=== PATIENT | male | born 1955 | race Caucasian/White ===

== ENCOUNTER 2016-12-26 18:01 | Inpatient (IN) | payer BC, OTHER ==
[~2016-12-26] VITALS: Ht 175.3 cm; Wt 113.0 kg
[~2016-12-26 18:01] MED LIST: CIPR100T4 PO; MORP1INJ45 PO; PERC7.5T13 PO
[2016-12-26 18:04] VITALS: BP 215/102; PULSE 92; RESP 17; TEMP 98.4; O2SAT 95
[2016-12-26 21:52] VITALS: BP 190/91; PULSE 71; RESP 18; O2SAT 100
[2016-12-26] MEDS ORDERED: SODIUM CHLOR 0.9% 1000 ML INJ 1,000 ML IV SCH (22:44)
[2016-12-26] MEDS ORDERED: MORPHINE SULFATE 4 MG/ML INJ IV PUSH ONE (22:45)
[2016-12-26] MEDS ORDERED: SODIUM CHLORIDE 0.9% FLUSH 5 ML FLUSH IVF PRN (22:45)
[2016-12-26] MEDS ORDERED: ONDANSETRON HCL 4 MG/2 ML VIAL IVP ONE (22:45)
[2016-12-26 23:05] LABS: AUTOMATED NEUTROPHIL # 9.3 TH/MM3 (1.8-7.7); BASOPHIL # 0.1 TH/MM3 (0-0.2); BASOPHIL % 0.4 % (0.0-2.0); EOSINOPHIL % 0.2 % (0.0-4.0); HEMATOCRIT 42.2 % (39.0-51.0); HEMO FLAGS DIFF FINAL; LYMPH % 14.8 % (9.0-44.0); LYMPHOCYTE # 1.8 TH/MM3 (1.0-4.8); MEAN CELL VOLUME 81.3 FL (80.0-100.0); MEAN CORPUSCULAR HGB CONC 34.5 % (32.0-36.0); MONO % 6.8 % (0.0-8.0); NEUT % 77.8 % (16.0-70.0); PLATELET COUNT 212 TH/MM3 (150-450); RED BLOOD COUNT 5.19 MIL/MM3 (4.50-5.90); RED CELL DISTRIBUTION WIDTH 15.2 % (11.6-17.2); WHITE BLOOD COUNT 11.9 TH/MM3 (4.0-11.0)
[2016-12-26 23:07] VITALS: O2SAT 99
[2016-12-26 23:15] LABS: APTT (PATIENT) 28.5 SEC (24.3-30.1); PROTHROMBIN TIME - PATIENT 11.4 SEC (9.8-11.6)
--- NOTE | 2016-12-26 23:22 | PD ---
HPI Chief Complaint: Lump, Cyst, Hernia Time Seen by Provider: 22:42 Travel History International Travel<30 days: No Contact w/Intl Traveler<30days: No Traveled to known affect area: No History of Present Illness HPI 61-year-old male with reportedly 5 surgeries for abdominal wall hematoma by Dr. Preea, last surgery was in 2011, here for evaluation of abdominal pain, nausea , and vomiting. The patient reports that after eating a sandwich 2 days ago he has been vomiting and unable to keep anything down. He has had mid and left mid abdominal pain which he describes as cramping, moderate, constant, worse with movement and palpation. He reports a small bowel movement yesterday. PFSH Past Medical History Blood Disorders: Yes (hx of blood clot left leg) Anxiety: Yes (just after surgery) Cancer: No Cardiovascular Problems: No Diabetes: No Deep Vein Thrombosis: Yes Endocrine: No Genitourinary: No Hepatitis: No Hiatal Hernia: No Immune Disorder: No Kidney Stones: Yes Medical other: Yes Musculoskeletal: No Neurologic: No Psychiatric: Yes Reproductive: No Respiratory: Yes Immunizations Current: Yes Thyroid Disease: No Tetanus Vaccination: Unknown Influenza Vaccination: Yes PNEUMOCCOCAL Vaccine (Year): 2 Past Surgical History Abdominal Surgery: Yes (7 HERNIA REPAIRS SINCE 2006) Cardiac Surgery: No Ear Surgery: No Endocrine Surgery: No Eye Surgery: No Genitourinary Surgery: Yes (LITHOTRIPSY) Gynecologic Surgery: No Oral Surgery: No Pacemaker: No Thoracic Surgery: No Other Surgery: Yes (abdominal x 3 hernia and intestinal) Social History Alcohol Use: Yes (quit 20 years ago) Tobacco Use: No Substance Use: No Allergies-Medications (Allergen,Severity, Reaction): Coded Allergies: No Known Allergies (Verified , 12/26/16) Reported Meds & Prescriptions Reported Meds & Active Scripts Active No Active Prescriptions or Reported Medications Review of Systems Except as stated in HPI: all other systems reviewed are Neg Physical Exam Narrative GENERAL: Well-developed, well-nourished, comfortable, no acute distress SKIN: Warm and dry. Several abdominal wall surgical scars are well-healed. HEAD: Atraumatic. Normocephalic. EYES: Pupils equal and round. No scleral icterus. No injection or drainage. ENT: Mucous membranes pink and moist. NECK: Trachea midline. No JVD. CARDIOVASCULAR: Regular rate and rhythm. RESPIRATORY: No accessory muscle use. Clear to auscultation. Breath sounds equal bilaterally. GASTROINTESTINAL: Abdomen soft, nondistended. Mild diffuse tenderness without peritoneal signs. No hernias. Normal bowel sounds. MUSCULOSKELETAL: No obvious deformities. No clubbing. No cyanosis. No edema. NEUROLOGICAL: Awake and alert. No obvious cranial nerve deficits. Motor grossly within normal limits. Normal speech. PSYCHIATRIC: Appropriate mood and affect; insight and judgment normal. Data Data Last Documented VS Vital Signs Date Time Temp Pulse Resp B/P Pulse Ox O2 Delivery O2 Flow Rate FiO2 12/27/16 01:09 20 12/26/16 23:56 88 154/92 99 Room Air 12/26/16 18:04 98.4 Orders Complete Blood Count With Diff (12/26/16 22:44) Comprehensive Metabolic Panel (12/26/16 22:44) Lipase (12/26/16 22:44) Lactic Acid (12/26/16 22:44) Prothrombin Time / Inr (Pt) (12/26/16 22:44) Act Partial Throm Time (Ptt) (12/26/16 22:44) Urinalysis - C+S If Indicated (12/26/16 22:44) Iv Access Insert/Monitor (12/26/16 22:44) Ecg Monitoring (12/26/16 22:44) Oximetry (12/26/16 22:44) Morphine Inj (Morphine Inj) (12/26/16 22:45) Ondansetron Inj (Zofran Inj) (12/26/16 22:45) Sodium Chlor 0.9% 1000 Ml Inj (Ns 1000 M (12/26/16 22:44) Sodium Chloride 0.9% Flush (Ns Flush) (12/26/16 22:45) Abdomen, Flat & Upright (12/26/16 ) Ct Abd/Pel W Iv Contrast(Rout) (12/27/16 ) Iohexol 350 Inj (Omnipaque 350 Inj) (12/27/16 00:31) Urine Culture (12/27/16 00:10) Ketorolac Inj (Toradol Inj) (12/27/16 01:15) Labs Laboratory Tests Test 12/26/16 12/26/16 12/27/16 22:55 23:05 00:10 Prothrombin Time 11.4 SEC Prothromb Time International 1.0 RATIO Ratio Activated Partial 28.5 SEC Thromboplast Time Sodium Level 139 MEQ/L Potassium Level 4.0 MEQ/L Chloride Level 105 MEQ/L Carbon Dioxide Level 24.3 MEQ/L Anion Gap 10 MEQ/L Blood Urea Nitrogen 12 MG/DL Creatinine 1.53 MG/DL Estimat Glomerular Filtration 47 ML/MIN Rate Random Glucose 91 MG/DL Calcium Level 9.0 MG/DL Total Bilirubin 0.6 MG/DL Aspartate Amino Transf 20 U/L (AST/SGOT) Alanine Aminotransferase 34 U/L (ALT/SGPT) Alkaline Phosphatase 97 U/L Total Protein 7.7 GM/DL Albumin 4.0 GM/DL Lipase 234 U/L White Blood Count 11.9 TH/MM3 Red Blood Count 5.19 MIL/MM3 Hemoglobin 14.6 GM/DL Hematocrit 42.2 % Mean Corpuscular Volume 81.3 FL Mean Corpuscular Hemoglobin 28.0 PG Mean Corpuscular Hemoglobin 34.5 % Concent Red Cell Distribution Width 15.2 % Platelet Count 212 TH/MM3 Mean Platelet Volume 8.0 FL Neutrophils (%) (Auto) 77.8 % Lymphocytes (%) (Auto) 14.8 % Monocytes (%) (Auto) 6.8 % Eosinophils (%) (Auto) 0.2 % Basophils (%) (Auto) 0.4 % Neutrophils # (Auto) 9.3 TH/MM3 Lymphocytes # (Auto) 1.8 TH/MM3 Monocytes # (Auto) 0.8 TH/MM3 Eosinophils # (Auto) 0.0 TH/MM3 Basophils # (Auto) 0.1 TH/MM3 CBC Comment DIFF FINAL Differential Comment Lactic Acid Level 0.9 mmol/L Urine Color YELLOW Urine Turbidity CLEAR Urine pH 5.5 Urine Specific [place] 1.019 Urine Protein TRACE mg/dL Urine Glucose (UA) NEG mg/dL Urine Ketones 10 mg/dL Urine Occult Blood MOD Urine Nitrite NEG Urine Bilirubin NEG Urine Urobilinogen LESS THAN 2.0 MG/DL Urine Leukocyte Esterase TRACE Urine RBC 15 /hpf Urine WBC 11 /hpf Urine Calcium Oxalate Crystals RARE /hpf Urine Mucus FEW /lpf Microscopic Urinalysis Comment CULTURE INDICATED MDM Medical Decision Making Medical Screen Exam Complete: Yes Emergency Medical Condition: Yes Differential Diagnosis Bowel obstruction, intra-abdominal infection, diverticulitis, colitis, seroma, infected mesh, nephrolithiasis Narrative Course Vital signs show heart rate 80, blood pressure 154/92, pulse ox 99% on room air , oral temp of 98.4F. CBC shows WBC 11.9, hemoglobin 14.6, hematocrit 42.2, platelets 212, neutrophils 77.8%. CMP is remarkable for creatinine 1.53, GFR 47, otherwise unremarkable. Lipase is 234. Lactic acid is 0.9. UA: 10 ketones, moderate occult blood, trace leukocyte esterase, 15 RBCs, 11 wbc's, rare calcium oxalate crystals, few urine mucus. Abdominal x-ray: Positive bowel gas in the abdomen. Bowel gas pattern otherwise within normal limits. CT abdomen pelvis: CONCLUSION: 1. 8mm proximal left ureteral calculus with moderate left hydronephrosis. 2. Colonic diverticulosis but no evidence of acute diverticulitis. The patient was made aware of all findings. He is still having pain despite receiving morphine and Toradol. He reports having a kidney stone on the left side that required stenting years ago. He states he is in too much pain to be discharged home and will like to be admitted for ureteral stenting. Case discussed with hospitalist Dr. Templeton. The patient will be admitted to his service for urology consultation. He will be started on Rocephin, Flomax, and IV fluids. Diagnosis Primary Impression: Ureterolithiasis Additional Impressions: Hydronephrosis Qualified Code: N13.2 - Hydronephrosis with urinary obstruction due to ureteral calculus Intractable pain Admitting Information Admitting Physician Requests: Admit Scripts No Active Prescriptions or Reported Meds Ashkan Justin MD Dec 26, 2016 23:22
[2016-12-26 23:23] LABS: ANION GAP 10 MEQ/L (5-15); AST (GOT) 20 U/L (15-37); BICARBONATE 24.3 MEQ/L (21.0-32.0); BLOOD UREA NITROGEN 12 MG/DL (7-18); CHLORIDE 105 MEQ/L (98-107); GLOMERULAR FILTRATION RATE 47 ML/MIN (>89); SODIUM (NA) 139 MEQ/L (136-145)
[2016-12-26 23:27] LABS: ALKALINE PHOSPHATASE 97 U/L (45-117); ALT (GPT) 34 U/L (12-78); TOTAL BILIRUBIN ADULT 0.6 MG/DL (0.2-1.0)
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
[2016-12-26 23:56] VITALS: BP 154/92; PULSE 88; RESP 18; O2SAT 99
[2016-12-27] MEDS ORDERED: IOHEXOL 350 MG/ML 10 ML VIAL (for RAD DIAG) IV ONE (00:31)
[2016-12-27 00:34] LABS: BLOOD, URINE MOD (NEG); CALCIUM OXALATE CRYSTALS,URINE RARE /hpf; COMMENT (UR) CULTURE INDICATED; CULTURE IF INDICATED CULTURE INDICATED; GLUCOSE,URINE NEG (NEG); KETONE, URINE 10 mg/dL (NEG); MUCUS URINE FEW /lpf (OCC); NITRITE,URINE NEG (NEG); PH, URINE 5.5 (5.0-8.5); URINE COLOR YELLOW (YELLW/STRAW)
--- NOTE | 2016-12-27 01:10 | RADRPT ---
EXAM DATE/TIME: 12/27/2016 00:13 [facility] COMPARISON: No previous studies available for comparison. INDICATIONS : Pain at site of umbilical hernia. History of multiple umbilical hernia surgeries. IV CONTRAST: 100 cc Omnipaque 350 (iohexol) IV ORAL CONTRAST: No oral contrast ingested. RADIATION DOSE: 17.03 CTDIvol (mGy) MEDICAL HISTORY : Deep venous thrombosis. Renal calculi. SURGICAL HISTORY : Umbilical hernia repair. ENCOUNTER: Initial ACUITY: 2 days PAIN SCALE: 10/10 LOCATION: Bilateral lower quadrant TECHNIQUE: Volumetric scanning of the abdomen and pelvis was performed. Using automated exposure control and ad justment of the mA and/or kV according to patient size, radiation dose was kept as low as reasonably achievable to obtain optimal diagnostic quality images. FINDINGS: LOWER LUNGS: The visualized lower lungs are clear. LIVER: Several scattered subcentimeter hypodensities statistically most likely to represent cysts. Otherwise within normal limits. Gallbladder within normal limits. SPLEEN: Normal size without lesion. PANCREAS: Within normal limits. KIDNEYS: 8 mm calculus in the proximal left ureter just below the ureteropelvic junction. Moderate severity le ft hydronephrosis. Punctate calculus in the posterior midpole of the left kidney. Slight delay in pha se of enhancement of the left kidney relative to the right. Right kidney is within normal limits. ADRENAL GLANDS: Within normal limits. VASCULAR: There is no aortic aneurysm. BOWEL/MESENTERY: Scattered colonic diverticula. No evidence of acute diverticulitis. Postsurgical findings of the prox imal colon. No evidence of bowel dilatation. No free air or free fluid. ABDOMINAL WALL: Evidence of prior hernia repair surgery anteriorly. RETROPERITONEUM: There is no lymphadenopathy. BLADDER: No wall thickening or mass. REPRODUCTIVE: Enlarged prostate measuring 6.5 cm INGUINAL: There is no lymphadenopathy or hernia. MUSCULOSKELETAL: Osteoarthritic findings in the hips and severe degenerative findings of lower lumbar spine facet join ts. CONCLUSION: 1. 8mm proximal left ureteral calculus with moderate left hydronephrosis. 2. Colonic diverticulosis but no evidence of acute diverticulitis. Maximilian Aragon MD on December 27, 2016 at 1:02 Board Certified Radiologist. This report was verified electronically.
[2016-12-27] MEDS ORDERED: KETOROLAC TROMETHAMINE 30 MG/ML (IVP) VIAL IV PUSH ONE (01:15)
[2016-12-27] MEDS ORDERED: SODIUM CHLOR 0.9% 1000 ML INJ 1,000 ML IV SCH (01:21)
[2016-12-27 01:27] VITALS: BP 152/79; PULSE 88; RESP 18
[2016-12-27] MEDS ORDERED: TAMSULOSIN HCL 0.4 MG CAP PO ONE (01:30)
[2016-12-27] MEDS ORDERED: ACETAMINOPHEN 325 MG TAB PO PRN (01:30)
[2016-12-27] MEDS ORDERED: MAGNESIUM HYDROXIDE SUSP 30 ML CUP PO PRN (01:30)
[2016-12-27] MEDS ORDERED: NALOXONE HCL 0.4 MG/ML AMP IV PRN (01:30)
[2016-12-27] MEDS ORDERED: cefTRIAXone INJ 1,000 MG in SODIUM CHLORIDE 0.9% INJ 100 ML IV ONE (01:30)
[2016-12-27] MEDS ORDERED: ONDANSETRON HCL 4 MG/2 ML VIAL IVP PRN (01:30)
[2016-12-27] MEDS: MORPHINE SULFATE 4 MG/ML INJ IV PRN ×2 (03:39→06:51)
[2016-12-27 03:42] VITALS: BP 154/83; PULSE 68; RESP 16; TEMP 98.4; O2SAT 95
[2016-12-27] MEDS: SODIUM CHLOR 0.9% 1000 ML INJ 1,000 ML IV SCH ×3 (03:43→23:49)
[2016-12-27 08:00] VITALS: BP 163/98; PULSE 70; RESP 18; TEMP 97.8; O2SAT 96
--- NOTE | 2016-12-27 08:27 | HHI.HP ---
[facility] No Primary Care Physician Admission Diagnosis left ureterolithiasis, hydronephrosis, intractable flank pain Diagnoses: Chief Complaint: left flank pain Travel History International Travel<30 Days: No Contact w/Intl Traveler <30 Da: No Traveled to Known Affected Are: No History of Present Illness Patient is a very pleasant 61 years old male who 3 days prior to admission started having abdominal pain which he initially thought was from his umbilical/ incisonal hernia from previous multiple abdominal surgeries. pain is described like a "gene horse" but persistent - last evening was so severe that patient doubled over and came to the ER for further evaluation. Patient denies any fever or dysuria or uregency. On further history, about 4 weeks ago had painless gross hematuria x 3 days. patient drank cranberry juice and pain spontaenously went away after 3 days. He does not recall is he passed a stone spontaneously. Denies any fever, dysuria, urgency He had history of ureteral stones in 2006- was admitted at [facility] seen by Dr. Mauricio Martinez where a stent was placed and he believed then that he did passed out stones and stent was removed 2 weeks after. He does not recall if he had stone analysis done. 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 No melena or hematochezia feels like he is going to have a BM now. Review of Systems Constitutional: DENIES: Diaphoretic episodes, Fatigue, Fever, Weight gain, Weight loss, Chills, Dizziness, Change in appetite, Night Sweats Endocrine: DENIES: Heat/cold intolerance, Polydipsia, Polyuria, Polyphagia Eyes: DENIES: Blurred vision, Diplopia, Eye inflammation, Eye pain, Vision loss , Photosensitivity, Double Vision Ears, nose, mouth, throat: DENIES: Tinnitus, Hearing loss, Vertigo, Nasal discharge, Oral lesions, Throat pain, Hoarseness, Ear Pain, Running Nose, Epistaxis, Sinus Pain, Toothache, Odynophagia Respiratory: DENIES: Apneas, Cough, Snoring, Wheezing, Hemoptysis, Sputum production, Shortness of breath Cardiovascular: DENIES: Chest pain, Palpitations, Syncope, Dyspnea on Exertion , PND, Lower Extremity Edema, Orthopnea, Claudication Gastrointestinal: COMPLAINS OF: Abdominal pain Genitourinary: COMPLAINS OF: Hematuria, DENIES: Sexual dysfunction, Urinary frequency, Urinary incontinence, Urgency, Dysuria, Nocturia, Penile Discharge, Testicular Pain, Testicular Swelling Musculoskeletal: DENIES: Joint pain, Muscle aches, Stiffness, Joint Swelling, Back pain, Neck pain Integumentary: DENIES: Abnormal pigmentation, Nail changes, Pruritus, Rash Hematologic/lymphatic: DENIES: Bruising, Lymphadenopathy Immunologic/allergic: DENIES: Eczema, Urticaria Neurologic: DENIES: Abnormal gait, Headache, Localized weakness, Paresthesias, Seizures, Speech Problems, Tremor, Poor Balance Psychiatric: DENIES: Anxiety, Confusion, Mood changes, Depression, Hallucinations, Agitation, Suicidal Ideation, Homicidal Ideation, Delusions Past Family Social History Past Medical History History of Ureteral stoness/p stent 2006 History of chronic pain due to chronic abdominal pain from umbilical hernia from previous abdominal surgeries- off pain meds since 2013 Past Surgical History multiple abdominal surgeries for umbilical/incisional hernia complicated by infection - mesh in place. last surgery 2011 ureteral stent 2006 EGD - 2011- for food impaction Reported Medications none Allergies: Coded Allergies: No Known Allergies (Verified , 12/26/16) Family History none contributory Social History non smoker occasional alcohol use- none for 15 years no history of recreational drug use Physical Exam Vital Signs Vital Signs Date Time Temp Pulse Resp B/P Pulse Ox O2 Delivery O2 Flow Rate FiO2 12/27/16 03:42 98.4 68 16 154/83 95 12/27/16 01:27 88 18 152/79 Nasal Cannula 2 12/27/16 01:09 20 12/26/16 23:56 88 18 154/92 99 Room Air 12/26/16 23:07 99 Room Air 12/26/16 21:52 71 18 190/91 100 12/26/16 18:04 98.4 92 17 215/102 95 Physical Exam GENERAL: This is a well-nourished, well-developed patient, in no apparent distress. SKIN: No rashes, ecchymoses or lesions. Cool and dry. HEAD: Atraumatic. Normocephalic. No temporal or scalp tenderness. EYES: Pupils equal round and reactive. Extraocular motions intact. No scleral icterus. No injection or drainage. ENT: Nose without bleeding, Throat without erythema, tonsillar hypertrophy or exudate. Uvula midline. Airway patent. NECK: Trachea midline. No JVD or lymphadenopathy. Supple, nontender, no meningeal signs. CARDIOVASCULAR: Regular rate and rhythm without murmurs, gallops, or rubs. RESPIRATORY: Clear to auscultation. Breath sounds equal bilaterally. No wheezes , rales, or rhonchi. GASTROINTESTINAL: Abdomen soft, non-tender, + umbilical/incisional hernia, good bowel sounds, no inguinal or scrotal hernia, mild left CVA tenderness. MUSCULOSKELETAL: Extremities without clubbing, cyanosis, or edema. No joint tenderness, effusion, or edema noted. No calf tenderness. Negative Homans sign bilaterally. NEUROLOGICAL: Awake and alert. Cranial nerves II through XII intact. Motor and sensory grossly within normal limits. Five out of 5 muscle strength in all muscle groups. Normal speech. Laboratory Laboratory Tests Test 12/26/16 12/26/16 12/27/16 22:55 23:05 00:10 Prothrombin Time 11.4 Prothromb Time International 1.0 Ratio Activated Partial 28.5 Thromboplast Time Sodium Level 139 Potassium Level 4.0 Chloride Level 105 Carbon Dioxide Level 24.3 Anion Gap 10 Blood Urea Nitrogen 12 Creatinine 1.53 Estimat Glomerular Filtration 47 Rate Random Glucose 91 Calcium Level 9.0 Total Bilirubin 0.6 Aspartate Amino Transf 20 (AST/SGOT) Alanine Aminotransferase 34 (ALT/SGPT) Alkaline Phosphatase 97 Total Protein 7.7 Albumin 4.0 Lipase 234 White Blood Count 11.9 Red Blood Count 5.19 Hemoglobin 14.6 Hematocrit 42.2 Mean Corpuscular Volume 81.3 Mean Corpuscular Hemoglobin 28.0 Mean Corpuscular Hemoglobin 34.5 Concent Red Cell Distribution Width 15.2 Platelet Count 212 Mean Platelet Volume 8.0 Neutrophils (%) (Auto) 77.8 Lymphocytes (%) (Auto) 14.8 Monocytes (%) (Auto) 6.8 Eosinophils (%) (Auto) 0.2 Basophils (%) (Auto) 0.4 Neutrophils # (Auto) 9.3 Lymphocytes # (Auto) 1.8 Monocytes # (Auto) 0.8 Eosinophils # (Auto) 0.0 Basophils # (Auto) 0.1 CBC Comment DIFF FINAL Differential Comment Lactic Acid Level 0.9 Urine Color YELLOW Urine Turbidity CLEAR Urine pH 5.5 Urine Specific [place] 1.019 Urine Protein TRACE Urine Glucose (UA) NEG Urine Ketones 10 Urine Occult Blood MOD Urine Nitrite NEG Urine Bilirubin NEG Urine Urobilinogen LESS THAN 2.0 Urine Leukocyte Esterase TRACE Urine RBC 15 Urine WBC 11 Urine Calcium Oxalate Crystals RARE Urine Mucus FEW Microscopic Urinalysis Comment CULTURE INDICATED Date/Time Procedure Status Source Growth 12/27/16 00:10 Urine Culture Received Urine Clean Catch Pending Result Diagram: 12/26/16225412/26/16225[address] of abdomina- left hydronephrosis with left ureteral stones Assessment and Plan Assessment and Plan 61 years old male Left ureteral calculus with hydronephrosis with previous history of stones 2006 S/p stent episode of gross hematuria x 3 days - 4 weeks ago Urology consulted Toradol IV prn for pain. As much as possible he vountarily would like to avoid narcotics for pain control with his history of narcotic dependence in the past strain urine- send urine for stone analysis on Ceftriaxone. Ff c and s. Umbilical/Incisional hernia- no signs of obstruction PPI for GI prophylaxis Encourage ambulation Physician Certification 2 Midnight Certification Type: Admission for Inpatient Services Order for Inpatient Services The services are ordered in accordance with Medicare regulations or non- Medicare payer requirements, as applicable. In the case of services not specified as inpatient-only, they are appropriately provided as inpatient services in accordance with the 2-midnight benchmark. Estimated LOS (days): 3 days is the estimated time the patient will need to remain in the hospital, assuming treatment plan goals are met and no additional complications. Post-Hospital Plan: Home Rocío Fowler MD Dec 27, 2016 08:27
[2016-12-27 08:44] LABS: BICARBONATE 23.4 MEQ/L (21.0-32.0); POTASSIUM 4.1 MEQ/L (3.5-5.1)
[2016-12-27 08:45] LABS: AUTOMATED NEUTROPHIL # 5.7 TH/MM3 (1.8-7.7); BASOPHIL # 0.1 TH/MM3 (0-0.2); BASOPHIL % 0.8 % (0.0-2.0); EOSINOPHIL # 0.2 TH/MM3 (0-0.4); HEMATOCRIT 39.4 % (39.0-51.0); HEMO FLAGS DIFF FINAL; LYMPH % 25.9 % (9.0-44.0); LYMPHOCYTE # 2.5 TH/MM3 (1.0-4.8); MEAN CELL VOLUME 81.9 FL (80.0-100.0); MEAN CORPUSCULAR HEMOGLOBIN 27.1 PG (27.0-34.0); MEAN CORPUSCULAR HGB CONC 33.2 % (32.0-36.0); MONO % 11.1 % (0.0-8.0); NEUT % 60.2 % (16.0-70.0); PLATELET COUNT 183 TH/MM3 (150-450); RED BLOOD COUNT 4.82 MIL/MM3 (4.50-5.90); RED CELL DISTRIBUTION WIDTH 15.4 % (11.6-17.2); WHITE BLOOD COUNT 9.5 TH/MM3 (4.0-11.0)
[2016-12-27] MEDS: KETOROLAC TROMETHAMINE 30 MG/ML (IVP) VIAL IV PUSH PRN ×3 (10:12→22:30)
[2016-12-27] MEDS: PANTOPRAZOLE SODIUM 40 MG VIAL IV PUSH SCH (10:12)
[2016-12-27 12:00] VITALS: BP 152/86; PULSE 82; RESP 20; TEMP 97.4; O2SAT 97
[2016-12-27 16:00] VITALS: BP 139/77; PULSE 60; RESP 18; TEMP 97.6; O2SAT 97
--- NOTE | 2016-12-27 18:48 | PD.CONS ---
HPI Service Urology Consult Requested By Reason for Consult Nephrolithiasis Primary Care Physician No Primary Care Physician Diagnosis: History of Present Illness 61yo male with history of nephrolithiasis admitted for left flank pain seen in consultation for left nephrolithiasis and hydronephrosis. Patient has a signficant past medical history of kidney stones, requiring multiple procedures with Dr. Martinez to treat his stone burden. He had been doing well until about one week ago he began to experience severe left flank pain that radiated to the abdomen. The pain was intermittent and associated with Nausea, no fevers, no vomiting. He did report an episode of blood in the urine during the pain episode. Since admit he reports his pain has improved with medications. Review of Systems ROS Limitations: Clinical Condition Constitutional: DENIES: Fever Endocrine: DENIES: Polyuria Eyes: DENIES: Blurred vision Ears, nose, mouth, throat: DENIES: Hearing loss Respiratory: DENIES: Cough Cardiovascular: DENIES: Chest pain Gastrointestinal: COMPLAINS OF: Abdominal pain, Nausea, DENIES: Vomiting Genitourinary: COMPLAINS OF: Hematuria, DENIES: Dysuria Musculoskeletal: COMPLAINS OF: Back pain Integumentary: DENIES: Rash Hematologic/lymphatic: DENIES: Bruising Immunologic/allergic: DENIES: Eczema Neurologic: DENIES: Abnormal gait Psychiatric: DENIES: Anxiety Except as stated in HPI: all other systems reviewed are Neg Past Family Social History Past Medical History History of Ureteral stoness/p stent 2006 History of chronic pain due to chronic abdominal pain from umbilical hernia from previous abdominal surgeries- off pain meds since 2013 Past Surgical History multiple abdominal surgeries for umbilical/incisional hernia complicated by infection - mesh in place. last surgery 2011 ureteral stent 2006 EGD - 2011- for food impaction Reported Medications Reported Meds & Active Scripts Active No Active Prescriptions or Reported Medications Allergies: Coded Allergies: No Known Allergies (Verified , 12/26/16) Active Ordered Medications Current Medications Medications (Trade) Dose Ordered Sig/Rosita Route Start Time Stop Time Status Last Admin IV Flush 2 ml 2 ml UNSCH PRN IVF 12/26/16 22:45 12/26/16 23:16 (NS 1000 ml Inj) 1,000 ml @ 100 mls/hr Q10H IV 12/27/16 01:19 12/27/16 14:45 (Zofran Inj) 4 mg Q6H PRN IVP 12/27/16 01:30 (Milk Of Jayy Liq) 30 ml Q12H PRN PO 12/27/16 01:30 (Tylenol) 650 mg Q6H PRN PO 12/27/16 01:30 (Morphine Inj) 2 mg Q3H PRN IV 12/27/16 01:30 12/27/16 06:51 (Morphine Inj) 4 mg Q3H PRN IV 12/27/16 01:30 Naloxone HCl 0.4 mg 0.4 mg UNSCH PRN IV 12/27/16 01:30 (Rocephin Inj/NS Inj) 100 ml @ 200 mls/hr Q24H IV 12/28/16 02:00 (Flu (Quadrivalent) Vaccine Inj) 0.5 ml ONCE ONCE IM 12/28/16 09:00 12/28/16 09:01 (Protonix Inj) 40 mg Q24H IV PUSH 12/27/16 09:00 12/27/16 10:12 (Toradol Inj) 15 mg Q6H PRN IV PUSH 12/27/16 08:30 01/01/17 08:29 12/27/16 16:17 Family History Family history reviewed and noncontributory to present illness Social History non smoker occasional alcohol use- none for 15 years no history of recreational drug use Physical Exam Vital Signs Vital Signs Date Time Temp Pulse Resp B/P Pulse Ox O2 Delivery O2 Flow Rate FiO2 12/27/16 16:00 97.6 60 18 139/77 97 12/27/16 12:00 97.4 82 20 152/86 97 12/27/16 08:00 97.8 70 18 163/98 96 12/27/16 03:42 98.4 68 16 154/83 95 12/27/16 01:27 88 18 152/79 Nasal Cannula 2 12/27/16 01:09 20 12/26/16 23:56 88 18 154/92 99 Room Air 12/26/16 23:07 99 Room Air 12/26/16 21:52 71 18 190/91 100 Physical Exam GENERAL: This is a well-nourished, well-developed patient, in no apparent distress. SKIN: No rashes, ecchymoses or lesions. Cool and dry. HEAD: Atraumatic. Normocephalic. EYES: Extraocular motions intact. No scleral icterus. No injection or drainage. ENT: Nose without bleeding, purulent drainage. Airway patent. NECK: Trachea midline. CARDIOVASCULAR: Normal pulses, extermities well perfused RESPIRATORY: Nonlabored respirations, equal chest rise GASTROINTESTINAL: Abdomen nondistended, large midline incisional hernia noted, nontender MUSCULOSKELETAL: Extremities without clubbing, cyanosis, or edema. NEUROLOGICAL: Awake and alert. Motor and sensory grossly within normal limits. Normal speech. Laboratory Laboratory Tests Test 12/26/16 12/26/16 12/27/16 12/27/16 22:55 23:05 00:10 06:30 Prothrombin Time 11.4 Prothromb Time International 1.0 Ratio Activated Partial 28.5 Thromboplast Time Sodium Level 139 Potassium Level 4.0 Chloride Level 105 Carbon Dioxide Level 24.3 Anion Gap 10 Blood Urea Nitrogen 12 Creatinine 1.53 Estimat Glomerular Filtration 47 Rate Random Glucose 91 Calcium Level 9.0 Total Bilirubin 0.6 Aspartate Amino Transf 20 (AST/SGOT) Alanine Aminotransferase 34 (ALT/SGPT) Alkaline Phosphatase 97 Total Protein 7.7 Albumin 4.0 Lipase 234 White Blood Count 11.9 9.5 Red Blood Count 5.19 4.82 Hemoglobin 14.6 13.1 Hematocrit 42.2 39.4 Mean Corpuscular Volume 81.3 81.9 Mean Corpuscular Hemoglobin 28.0 27.1 Mean Corpuscular Hemoglobin 34.5 33.2 Concent Red Cell Distribution Width 15.2 15.4 Platelet Count 212 183 Mean Platelet Volume 8.0 8.5 Neutrophils (%) (Auto) 77.8 60.2 Lymphocytes (%) (Auto) 14.8 25.9 Monocytes (%) (Auto) 6.8 11.1 Eosinophils (%) (Auto) 0.2 2.0 Basophils (%) (Auto) 0.4 0.8 Neutrophils # (Auto) 9.3 5.7 Lymphocytes # (Auto) 1.8 2.5 Monocytes # (Auto) 0.8 1.1 Eosinophils # (Auto) 0.0 0.2 Basophils # (Auto) 0.1 0.1 CBC Comment DIFF FINAL DIFF FINAL Differential Comment Lactic Acid Level 0.9 Urine Color YELLOW Urine Turbidity CLEAR Urine pH 5.5 Urine Specific [place] 1.019 Urine Protein TRACE Urine Glucose (UA) NEG Urine Ketones 10 Urine Occult Blood MOD Urine Nitrite NEG Urine Bilirubin NEG Urine Urobilinogen LESS THAN 2.0 Urine Leukocyte Esterase TRACE Urine RBC 15 Urine WBC 11 Urine Calcium Oxalate Crystals RARE Urine Mucus FEW Microscopic Urinalysis Comment CULTURE INDICATED Hematology Comments Test 12/27/16 08:00 Sodium Level 140 Potassium Level 4.1 Chloride Level 108 Carbon Dioxide Level 23.4 Anion Gap 9 Blood Urea Nitrogen 13 Creatinine 1.37 Estimat Glomerular Filtration 53 Rate Random Glucose 83 Uric Acid 6.5 Calcium Level 8.3 Date/Time Procedure Status Source Growth 12/27/16 00:10 Urine Culture Received Urine Clean Catch Pending Result Diagram: 12/27/16 0630 12/27/16 0800 Imaging Last 48 hours Impressions Abdomen/Pelvis CT 12/27/16 0000 Signed Impressions: Service Date/Time: Tuesday, December 27, 2016 00:13 - CONCLUSION: 1. 8mm proximal left ureteral calculus with moderate left hydronephrosis. 2. Colonic diverticulosis but no evidence of acute diverticulitis. Maximilian Aragon MD Abdomen X-Ray 12/26/16 0000 Signed Impressions: Service Date/Time: Monday, December 26, 2016 23:05 - CONCLUSION: Paucity of bowel gas in the abdomen. Bowel gas pattern otherwise within normal limits. Maximilian Aragon MD Assessment and Plan Problem List: (1) Ureterolithiasis ICD Code: N20.1 Status: Acute (2) Hydronephrosis ICD Code: N13.30 Status: Acute Assessment and Plan 61yo male with left nephrolithiasis -Reviewed CT scan findings with large left proximal ureteral stone noted with resultant hydronephrosis -Patient currently comfortable, however he has had multiple stones in the past and would like treatment at this time -Therefore, plan for left ureteral stent placement tomorrow with likely ESWL in the future as he has had this in the past with satisfactory results -NPO at midnight tonight -Patient understands the risks and benefits of the procedure Problem Qualifiers (1) Hydronephrosis: Qualified Code: N13.2 - Hydronephrosis with urinary obstruction due to ureteral calculus Tyson Villarreal MD Dec 27, 2016 18:48
[2016-12-27 20:14] VITALS: BP 135/71; PULSE 80; RESP 18; TEMP 97.8; O2SAT 96
[2016-12-28] VITALS: BP 116/72; PULSE 64; RESP 18; TEMP 98; O2SAT 96
[2016-12-28] MEDS: cefTRIAXone INJ 1,000 MG in SODIUM CHLORIDE 0.9% INJ 100 ML IV SCH (02:12)
[2016-12-28 04:05] VITALS: BP 125/73; PULSE 55; RESP 16; TEMP 97.2; O2SAT 96
[2016-12-28] MEDS: KETOROLAC TROMETHAMINE 30 MG/ML (IVP) VIAL IV PUSH PRN ×3 (04:19→17:23)
[2016-12-28] MEDS: SODIUM CHLOR 0.9% 1000 ML INJ 1,000 ML IV SCH (07:19)
[2016-12-28 07:50] VITALS: BP 150/87; PULSE 20; RESP 20; TEMP 98.2; O2SAT 99
[2016-12-28] MEDS: MORPHINE SULFATE 4 MG/ML INJ IV PRN ×4 (08:36→23:19)
[2016-12-28] MEDS: PANTOPRAZOLE SODIUM 40 MG VIAL IV PUSH SCH (08:42)
[2016-12-28] MEDS ORDERED: INFLUENZA VIRUS VACCINE (QUADRIVALENT) 0.5 ML SYR IM ONE (09:00)
--- NOTE | 2016-12-28 10:09 | HHI.PR ---
Subjective Remarks had a good night slight flank pain last evening no voiding complainst-urine grossly clear Objective Vitals Vital Signs Date Time Temp Pulse Resp B/P Pulse Ox O2 Delivery O2 Flow Rate FiO2 12/28/16 04:05 97.2 55 16 125/73 96 12/28/16 00:00 98.0 64 18 116/72 96 12/27/16 20:14 97.8 80 18 135/71 96 12/27/16 16:00 97.6 60 18 139/77 97 12/27/16 12:00 97.4 82 20 152/86 97 I/O 12/27/16 12/27/16 12/27/16 12/28/16 12/28/16 12/28/16 07:00 15:00 23:00 07:00 15:00 23:00 Intake Total 997 ml 450 ml 0 ml Output Total 200 ml 200 ml 300 ml Balance 797 ml 250 ml -300 ml Intake Oral 0 ml 450 ml 0 ml IV Total 997 ml Output Urine Total 200 ml 200 ml 300 ml # Bowel Movements 0 0 Result Diagram: 12/27/16 0630 12/27/16 0800 Imaging Last Impressions Abdomen/Pelvis CT 12/27/16 0000 Signed Impressions: Service Date/Time: Tuesday, December 27, 2016 00:13 - CONCLUSION: 1. 8mm proximal left ureteral calculus with moderate left hydronephrosis. 2. Colonic diverticulosis but no evidence of acute diverticulitis. Maximilian Aragon MD Abdomen X-Ray 12/26/16 0000 Signed Impressions: Service Date/Time: Monday, December 26, 2016 23:05 - CONCLUSION: Paucity of bowel gas in the abdomen. Bowel gas pattern otherwise within normal limits. Maximilian Aragon MD Objective Remarks awake and alert, NAD lungs clear regular rhythm abdomen0 flabby soft, good bowel sounds, mild left CVA tenderness extremities no edema neuro exam- unremarkable A/P Assessment and Plan 61 years old male Left ureteral calculus with hydronephrosis with previous history of stones 2007 S/p stent Urology ff- plan for intervention today on Ceftriaxone. Ff c and s. Umbilical/Incisional hernia- no signs of obstruction PPI for GI prophylaxis Encourage ambulation DC planning Rocío Fowler MD Dec 28, 2016 10:09
[2016-12-28 11:50] VITALS: BP 140/80; PULSE 63; RESP 20; TEMP 98.2; O2SAT 96
[2016-12-28 15:50] VITALS: BP 144/78; PULSE 59; RESP 20; TEMP 97.6; O2SAT 96
--- NOTE | 2016-12-28 19:22 | HHI.PR ---
Subjective Remarks Patient seen and examined. Unable to go to OR today for stent placement due to OR humidity malfunction Objective Vital Signs Vital Signs Date Time Temp Pulse Resp B/P Pulse Ox O2 Delivery O2 Flow Rate FiO2 12/28/16 18:23 18 12/28/16 15:50 97.6 59 20 144/78 96 12/28/16 11:50 98.2 63 20 140/80 96 12/28/16 08:41 18 12/28/16 07:50 98.2 20 20 150/87 99 12/28/16 04:05 97.2 55 16 125/73 96 12/28/16 00:00 98.0 64 18 116/72 96 12/27/16 20:14 97.8 80 18 135/71 96 I/O 12/27/16 12/27/16 12/27/16 12/28/16 12/28/16 12/28/16 07:00 15:00 23:00 07:00 15:00 23:00 Intake Total 997 ml 450 ml 0 ml 2423 ml Output Total 200 ml 200 ml 300 ml Balance 797 ml 250 ml -300 ml 2423 ml Intake Oral 0 ml 450 ml 0 ml IV Total 997 ml 2423 ml Output Urine Total 200 ml 200 ml 300 ml # Bowel Movements 0 0 Result Diagram: 12/27/16 0630 12/27/16 0800 Imaging Last 48 hours Impressions Abdomen/Pelvis CT 12/27/16 0000 Signed Impressions: Service Date/Time: Tuesday, December 27, 2016 00:13 - CONCLUSION: 1. 8mm proximal left ureteral calculus with moderate left hydronephrosis. 2. Colonic diverticulosis but no evidence of acute diverticulitis. Maximilian Aragon MD Abdomen X-Ray 12/26/16 0000 Signed Impressions: Service Date/Time: Monday, December 26, 2016 23:05 - CONCLUSION: Paucity of bowel gas in the abdomen. Bowel gas pattern otherwise within normal limits. Maximilian Aargon MD Objective Remarks NAD, AAOx3 Resp NL Ab Soft, nontender Ambulatory Assessment and Plan Problem List: (1) Ureterolithiasis ICD Code: N20.1 Status: Acute (2) Hydronephrosis ICD Code: N13.30 Status: Acute Assessment and Plan 61yo male with left nephrolithiasis -Plan for OR tomorrow for left ureteral stent placement -NPO at midnight Problem Qualifiers (1) Hydronephrosis: Qualified Code: N13.2 - Hydronephrosis with urinary obstruction due to ureteral calculus Tyson Villarreal MD Dec 28, 2016 19:22
[2016-12-28] MEDS ORDERED: MORPHINE SULFATE 4 MG/ML INJ IV PRN (19:30)
[2016-12-28 20:00] VITALS: BP 133/69; PULSE 66; RESP 16; TEMP 97.7; O2SAT 98
[2016-12-29] VITALS (7 sets, daily range): BP systolic 144–169; BP diastolic 86–91; PULSE 56–94; RESP 16–20; TEMP 95.8–98.1; O2SAT 94–99
[2016-12-29] MEDS: KETOROLAC TROMETHAMINE 30 MG/ML (IVP) VIAL IV PUSH PRN ×3 (00:21→20:17)
[2016-12-29] MEDS: SODIUM CHLOR 0.9% 1000 ML INJ 1,000 ML IV SCH ×4 (00:25→23:19)
[2016-12-29] MEDS: MORPHINE SULFATE 4 MG/ML INJ IV PRN ×3 (02:52→12:04)
[2016-12-29] MEDS: cefTRIAXone INJ 1,000 MG in SODIUM CHLORIDE 0.9% INJ 100 ML IV SCH (02:52)
--- NOTE | 2016-12-29 08:12 | HHI.PR ---
Subjective Remarks voiding spontaneously- no gross hematuria, no dysuria Objective Vitals Vital Signs Date Time Temp Pulse Resp B/P Pulse Ox O2 Delivery O2 Flow Rate FiO2 12/29/16 04:00 96.7 57 16 167/90 97 12/29/16 00:00 97.4 56 16 144/86 98 12/28/16 20:00 97.7 66 16 133/69 98 12/28/16 18:23 18 12/28/16 15:50 97.6 59 20 144/78 96 12/28/16 11:50 98.2 63 20 140/80 96 12/28/16 08:41 18 I/O 12/28/16 12/28/16 12/28/16 12/29/16 12/29/16 12/29/16 07:00 15:00 23:00 07:00 15:00 23:00 Intake Total 0 ml 0 ml 2783 ml 0 ml Output Total 300 ml Balance -300 ml 0 ml 2783 ml 0 ml Intake Oral 0 ml 0 ml 360 ml 0 ml IV Total 2423 ml Output Urine Total 300 ml # Voids 5 2 2 # Bowel Movements 0 1 0 0 Result Diagram: 12/27/16 0630 12/27/16 0800 Imaging Last Impressions Abdomen/Pelvis CT 12/27/16 0000 Signed Impressions: Service Date/Time: Tuesday, December 27, 2016 00:13 - CONCLUSION: 1. 8mm proximal left ureteral calculus with moderate left hydronephrosis. 2. Colonic diverticulosis but no evidence of acute diverticulitis. Maximilian Aragon MD Abdomen X-Ray 12/26/16 0000 Signed Impressions: Service Date/Time: Monday, December 26, 2016 23:05 - CONCLUSION: Paucity of bowel gas in the abdomen. Bowel gas pattern otherwise within normal limits. Maximilian Aragon MD Objective Remarks awake and alert, NAD lungs clear regular rhythm abdomen0 flabby soft, good bowel sounds, no CVA tenderness extremities no edema neuro exam- unremarkable A/P Assessment and Plan 61 years old male Left ureteral calculus with hydronephrosis with previous history of stones 2006 S/p stent Urology ff- plan for iOR today on Ceftriaxone Umbilical/Incisional hernia- no signs of obstruction PPI for GI prophylaxis Encourage ambulation Today possibly after procedure if cleared with Urology Rocío Fowler MD Dec 29, 2016 08:12 Rocío Fowler MD Dec 29, 2016 08:12
[2016-12-29] MEDS: PANTOPRAZOLE SODIUM 40 MG VIAL IV PUSH SCH (08:56)
[2016-12-29] MEDS ORDERED: LACTATED RINGER'S 1000 ML INJ 1,000 ML IV ONE (12:00)
[2016-12-29] MEDS ORDERED: PROPOFOL 200 MG/20 ML AMP IV ONE ×2 (12:00)
[2016-12-29] MEDS ORDERED: ONDANSETRON HCL 4 MG/2 ML VIAL IV PUSH ONE (12:00)
[2016-12-29] MEDS ORDERED: LORazepam 2 MG/ML VIAL IV PUSH ONE (12:00)
[2016-12-29] MEDS ORDERED: MIDAZOLAM HCL 2 MG/2 ML VIAL ONE (16:08)
[2016-12-29] MEDS ORDERED: fentaNYL CITRATE 250 MCG/5 ML AMP ONE ×2 (16:09→17:10)
[2016-12-29] MEDS ORDERED: ACETAMINOPHEN 1000 MG/100 ML VIAL IV ONE (16:09)
[2016-12-29] MEDS ORDERED: ceFAZolin INJ 1,000 MG VIAL IV ONE (16:30)
[2016-12-29] MEDS ORDERED: IOHEXOL 350 MG/ML 50 ML BTL (for RAD DIAG) OTHER ONE (16:36)
--- NOTE | 2016-12-29 17:01 | HHI.PR ---
Subjective Remarks Successful placement of left ureteral stent. Patient is clear for discharge from Urology standpoint Follow-p in clinic in 1-2 weeks to plan definitive stone surgery with ESWL vs Ureteroscopy Please call with questions Objective Vital Signs Vital Signs Date Time Temp Pulse Resp B/P Pulse Ox O2 Delivery O2 Flow Rate FiO2 12/29/16 15:00 98.1 61 20 169/91 99 12/29/16 12:39 60 158/88 98 12/29/16 11:50 97.0 60 20 163/90 97 12/29/16 07:50 95.8 58 20 149/86 99 12/29/16 04:00 96.7 57 16 167/90 97 12/29/16 00:00 97.4 56 16 144/86 98 12/28/16 20:00 97.7 66 16 133/69 98 12/28/16 18:23 18 I/O 12/28/16 12/28/16 12/28/16 12/29/16 12/29/16 12/29/16 07:00 15:00 23:00 07:00 15:00 23:00 Intake Total 0 ml 0 ml 2783 ml 0 ml 0 ml Output Total 300 ml Balance -300 ml 0 ml 2783 ml 0 ml 0 ml Intake Oral 0 ml 0 ml 360 ml 0 ml 0 ml IV Total 2423 ml Output Urine Total 300 ml # Voids 5 2 2 4 # Bowel Movements 0 1 0 0 1 Result Diagram: 12/27/16 0630 12/27/16 0800 Assessment and Plan Problem List: (1) Ureterolithiasis ICD Code: N20.1 Status: Acute (2) Hydronephrosis ICD Code: N13.30 Status: Acute Problem Qualifiers (1) Hydronephrosis: Qualified Code: N13.2 - Hydronephrosis with urinary obstruction due to ureteral calculus Tyson Villarreal MD Dec 29, 2016 17:00
[2016-12-30] VITALS: BP 148/74; PULSE 67; RESP 18; TEMP 96.9; O2SAT 97
[2016-12-30] MEDS: cefTRIAXone INJ 1,000 MG in SODIUM CHLORIDE 0.9% INJ 100 ML IV SCH (01:57)
[2016-12-30] MEDS: KETOROLAC TROMETHAMINE 30 MG/ML (IVP) VIAL IV PUSH PRN (02:02)
[2016-12-30 04:00] VITALS: BP 145/71; PULSE 65; RESP 18; TEMP 96.6; O2SAT 95
[2016-12-30 08:00] VITALS: BP 134/91; PULSE 66; RESP 16; TEMP 97.9; O2SAT 99
[2016-12-30] MEDS: PANTOPRAZOLE SODIUM 40 MG VIAL IV PUSH SCH (08:32)
[2016-12-30] MEDS: SODIUM CHLOR 0.9% 1000 ML INJ 1,000 ML IV SCH (09:19)
--- NOTE | 2016-12-30 09:31 | HHI.PR ---
Subjective Remarks states had some hematuria after procedure but this is clearing out. denies cp/sob denies fevers/chills urinating well stable vital signs afebrile Objective Vitals Vital Signs Date Time Temp Pulse Resp B/P Pulse Ox O2 Delivery O2 Flow Rate FiO2 12/30/16 04:00 96.6 65 18 145/71 95 12/30/16 03:52 20 12/30/16 00:00 96.9 67 18 148/74 97 12/29/16 21:10 97.6 94 16 156/90 94 12/29/16 17:45 62 16 170/97 100 Nasal Cannula 2 12/29/16 17:29 62 16 172/91 96 Nasal Cannula 3 12/29/16 17:15 Nasal Cannula 3 12/29/16 17:03 98.1 89 16 167/86 98 Nasal Cannula 3 12/29/16 15:00 98.1 61 20 169/91 99 12/29/16 12:39 60 158/88 98 12/29/16 11:50 97.0 60 20 163/90 97 I/O 12/29/16 12/29/16 12/29/16 12/30/16 12/30/16 12/30/16 07:00 15:00 23:00 07:00 15:00 23:00 Intake Total 0 ml 0 ml 400 ml 1145 ml Output Total 0 ml Balance 0 ml 0 ml 400 ml 1145 ml Intake Oral 0 ml 0 ml IV Total 200 ml 1145 ml Other 200 ml Output Urine Total 0 ml Estimated Blood Loss 0 ml # Voids 2 4 4 # Bowel Movements 0 1 1 Result Diagram: 12/27/16 0630 12/27/16 0800 Imaging Last Impressions Abdomen/Pelvis CT 12/27/16 0000 Signed Impressions: Service Date/Time: Tuesday, December 27, 2016 00:13 - CONCLUSION: 1. 8mm proximal left ureteral calculus with moderate left hydronephrosis. 2. Colonic diverticulosis but no evidence of acute diverticulitis. Maximilian Aragon MD Abdomen X-Ray 12/26/16 0000 Signed Impressions: Service Date/Time: Monday, December 26, 2016 23:05 - CONCLUSION: Paucity of bowel gas in the abdomen. Bowel gas pattern otherwise within normal limits. Maximilian Aragon MD Objective Remarks awake and alert, NAD lungs clear regular rhythm abdomen0 flabby soft, good bowel sounds, no CVA tenderness extremities no edema neuro exam- unremarkable Procedures sp retrograde Cystoscopy and left ureteral stent placement on 12/29/16 Medications and IVs Current Medications Medications (Trade) Dose Ordered Sig/Rosita Route Start Time Stop Time Status Last Admin IV Flush 2 ml 2 ml UNSCH PRN IVF 12/26/16 22:45 12/26/16 23:16 (NS 1000 ml Inj) 1,000 ml @ 100 mls/hr Q10H IV 12/27/16 01:19 12/29/16 23:19 (Zofran Inj) 4 mg Q6H PRN IVP 12/27/16 01:30 12/28/16 08:34 (Milk Of Magnesia Liq) 30 ml Q12H PRN PO 12/27/16 01:30 (Tylenol) 650 mg Q6H PRN PO 12/27/16 01:30 Naloxone HCl 0.4 mg 0.4 mg UNSCH PRN IV 12/27/16 01:30 (Rocephin Inj/NS Inj) 100 ml @ 200 mls/hr Q24H IV 12/28/16 02:00 12/30/16 01:57 (Protonix Inj) 40 mg Q24H IV PUSH 12/27/16 09:00 12/29/16 08:56 (Toradol Inj) 15 mg Q6H PRN IV PUSH 12/27/16 08:30 01/01/17 08:29 12/30/16 02:02 (Morphine Inj) 1 mg Q3H PRN IV 12/28/16 19:30 (Morphine Inj) 2 mg Q4HR PRN IV 12/28/16 20:00 12/29/16 12:04 A/P Problem List: (1) Intractable pain ICD Code: R52 Status: Resolved (2) Ureterolithiasis ICD Code: N20.1 Status: Resolved (3) Hydronephrosis ICD Code: N13.30 Status: Resolved Assessment and Plan 61 years old male Left ureteral calculus with hydronephrosis with previous history of stones 2007 S/p stent Patient is sp Left ureteral stent placement. Pain resolved. On Rocephin x 3 days. Does not need antibiotics upon DC. Umbilical/Incisional hernia- no signs of obstruction PPI for GI prophylaxis Encourage ambulation Problem Qualifiers (1) Hydronephrosis: Qualified Code: N13.2 - Hydronephrosis with urinary obstruction due to ureteral calculus Danial Barnett MD Dec 30, 2016 09:31
--- NOTE | 2016-12-30 11:18 | HHI.DCPOC ---
Discharge Care Plan Diagnosis: (1) Intractable pain (2) Ureterolithiasis (3) Hydronephrosis Goals to Promote Your Health * To prevent worsening of your condition and complications * To maintain your health at the optimal level Directions to Meet Your Goals Take your medications as prescribed Follow your dietary instruction Follow activity as directed Keep your appointments as scheduled Take your immunizations and boosters as scheduled If your symptoms worsen call your PCP, if no PCP go to Urgent Care Center or Emergency Room Smoking is Dangerous to Your Health. Avoid second hand smoke Call the 24-hour hour crisis hotline for domestic abuse at Danial Barnett MD Dec 30, 2016 11:18
[2016-12-30 11:35] LABS: BICARBONATE 25.3 MEQ/L (21.0-32.0); POTASSIUM 3.8 MEQ/L (3.5-5.1)
--- NOTE | 2017-01-02 12:36 | MP ---
cc: FRANCY LARIOS MD DATE OF SURGERY 12/29/16 PREOPERATIVE DIAGNOSIS Left nephrolithiasis, hydronephrosis POSTOPERATIVE DIAGNOSIS Left nephrolithiasis, hydronephrosis SURGEON Angus Larios MD PROCEDURE 1. Cystoscopy. 2. Left ureteral stent placement. 3. Left retrograde pyelogram 4. Interpretation of radiographic images. INTERPRETATION OF RADIOGRAPHIC 1. Retrograde pyelogram identified left-sided hydronephrosis. However, there was evidence of extravasation noted on retrograde. 2. After manipulation and repeat retrograde the renal pelvis was identified and a wire was able to be advanced into the renal pelvis and a stent was placed successfully with good coil in the left renal pelvis as well as in the bladder. PERTINENT FINDINGS 1. Some difficulty in passing the wire up beyond the stone noted in the proximal area. After several attempts, this was eventually successful. 2. Successful placement of a 6 x 24 double-J ureteral stent on the left. HISTORY OF PRESENT ILLNESS Dilan Lozoya is a 61-year-old male with a history of nephrolithiasis now found to have a proximal left obstructing ureteral stone. The patient presents for definitive treatment with left ureteral stent placement with plan for stone removal in the future. PROCEDURE IN DETAIL After proper informed consent was obtained, the patient was brought to the operating room and laid supine on the operating table. Bilateral lower extremity SCDs were then placed. The patient was placed under general anesthesia. The patient placed in lithotomy position, prepped and draped in standard surgical fashion. After proper time out was completed, rigid cystoscope inserted into the urethra and into the bladder. The urethral mucosa was within normal limits without any abnormalities or lesions identified throughout. Bilateral orifices were identified. It was noted that the prostate was really quite large and obstructing with trilobar prostatic hypertrophy. At this point, attention was turned to the left ureteral orifice. This was cannulated using the guide wire advanced up to the proximal ureter. At this point, some resistance was met, however, the wire was felt to be passed beyond. However, upon fluoroscopic imaging I did not feel that the wire had gone into the left renal pelvis. Therefore open ended catheter was advanced over the wire into the left proximal ureter. A retrograde was then administered which identified some extravasation. It did not appear like normal renal pelvis. Therefore, the open ended catheter was pulled back and a repeat retrogram was completed which showed the evidence of the proper left renal pelvis with smooth edges. At this point, the glide wire was advanced through the open-ended catheter into the left renal pelvis and the 6x24 double J ureteral stent was successfully placed into the left collecting system with good coil in the left renal pelvis as well as in the bladder. Fluoroscopic imaging confirmed proper position of the left ureteral stent. At this point, the patient's bladder was emptied and the scope was removed. The patient tolerated the procedure well with no complications. He was awaken from anesthesia and taken to post anesthesia care unit in stable condition. The patient will be discharged home with follow up in clinic for definitive management of the stone burden. Candelaria Dunaway/ /5:04 PM /12:31 PM NOEMY
--- NOTE | 2017-01-12 08:46 | HHI.DS ---
Discharge Summary Admission Date Dec 27, 2016 at 01:24 Discharge Date: Dec 30, 2016 Admitting Diagnosis left ureterolithiasis, hydronephrosis, intractable flank pain (1) Intractable pain ICD Code: R52 Diagnosis: Principal (2) Ureterolithiasis ICD Code: N20.1 Diagnosis: Principal (3) Hydronephrosis ICD Code: N13.30 Diagnosis: Principal Procedures sp retrograde Cystoscopy and left ureteral stent placement on 12/29/16 Brief History - From Admission Patient is a very pleasant 61 years old male who 3 days prior to admission started having abdominal pain which he initially thought was from his umbilical/ incisonal hernia from previous multiple abdominal surgeries. pain is described like a "gene horse" but persistent - last evening was so severe that patient doubled over and came to the ER for further evaluation. Patient denies any fever or dysuria or uregency. On further history, about 4 weeks ago had painless gross hematuria x 3 days. patient drank cranberry juice and pain spontaenously went away after 3 days. He does not recall is he passed a stone spontaneously. Denies any fever, dysuria, urgency He had history of ureteral stones in 2006- was admitted at [facility] seen by Dr. Mauricio Martinez where a stent was placed and he believed then that he did passed out stones and stent was removed 2 weeks after. He does not recall if he had stone analysis done. 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 No melena or hematochezia feels like he is going to have a BM now. Imaging Last Impressions Abdomen/Pelvis CT 12/27/16 0000 Signed Impressions: Service Date/Time: Tuesday, December 27, 2016 00:13 - CONCLUSION: 1. 8mm proximal left ureteral calculus with moderate left hydronephrosis. 2. Colonic diverticulosis but no evidence of acute diverticulitis. Maximilian Aragon MD Abdomen X-Ray 12/26/16 0000 Signed Impressions: Service Date/Time: Monday, December 26, 2016 23:05 - CONCLUSION: Paucity of bowel gas in the abdomen. Bowel gas pattern otherwise within normal limits. Maximilian Aragon MD PE at Discharge awake and alert, NAD lungs clear regular rhythm abdomen0 flabby soft, good bowel sounds, no CVA tenderness extremities no edema neuro exam- unremarkable Hospital Course 61 years old male Left ureteral calculus with hydronephrosis with previous history of stones 2006 S/p stent Patient is sp Left ureteral stent placement. Pain resolved. On Rocephin x 3 days. Does not need antibiotics upon DC. Umbilical/Incisional hernia- no signs of obstruction PPI for GI prophylaxis Encourage ambulation Pt Condition on Discharge: Good Discharge Disposition: Discharge Home Discharge Time: <= 30 minutes Discharge Instructions DIET: Follow Instructions for: As Tolerated, No Restrictions Activities you can perform: Regular-No Restrictions Follow up Referrals: Urology - 1 Week with Tyson Villarreal MD Medication Profile: No Active Prescriptions or Reported Meds Danial Barnett MD Jan 12, 2017 08:46
== END 2016-12-30 13:51 | disposition home or self-care (01) | DRG 694 ==
LOC: NEPA 18:01 → NEDA 12-27 01:24 → HOCA 12-27 03:12
PROVIDERS: ADMIT Hospitalist; ATTEND Hospitalist
PROC: BT1FZZZ Fluoroscopy of Left Kidney, Ureter and Bladder (ICD-10-PCS; 2016-12-29)
PROC: 0T778DZ Dilation of Left Ureter with Intraluminal Device, Via Natural or Artificial Opening Endoscopic (ICD-10-PCS; principal; 2016-12-29 16:12)
DX: N13.2 Hydronephrosis with renal and ureteral calculous obstruction (principal); F11.21 Opioid dependence, in remission; K43.2 Incisional hernia without obstruction or gangrene; N40.0 Benign prostatic hyperplasia without lower urinary tract symptoms
CPT/HCPCS: 74020; 74177; 74420; 80048; 80053; 81001; 83605; 83690; 84550; 85025; 85610; 85730; 87086; 96361; 96374; 96375; C2617; C9113; J0131; J0690; J0696; J1885; J2060; J2250; J2270; J2405; J3010; J7030; J7120; Q9967

== ENCOUNTER 2018-03-30 13:20 | Observation (INO) | payer OTHER ==
[~2018-03-30] VITALS: Ht 175.3 cm; Wt 112.5 kg
[2018-03-30] VITALS (7 sets, daily range): BP systolic 139–188; BP diastolic 75–97; PULSE 56–74; RESP 14–20; TEMP 98.7–99.1; O2SAT 97–99
[2018-03-30] MEDS ORDERED: IOHEXOL 350 MG/ML 10 ML VIAL (for RAD DIAG) IVCONTRAST ONE (13:21)
[2018-03-30] MEDS ORDERED: ASPIRIN 325 MG TAB PO ONE (14:15)
[2018-03-30] MEDS ORDERED: SODIUM CHLORIDE 0.9% FLUSH 10 ML FLUSH IVF PRN (14:15)
--- NOTE | 2018-03-30 14:18 | PD ---
HPI Chief Complaint: Dizziness Time Seen by Provider: 13:56 Travel History International Travel<30 days: No Contact w/Intl Traveler<30days: No Traveled to known affect area: No History of Present Illness HPI This patient was sent from the ID. He is pretty vague in terms of history. For a full month he has had some shortness of breath. He has had intermittent chest discomfort in the midsternal region. Seems like his chest discomfort is very brief and not exertional. He does have history of esophageal stricture but does not think it is the same symptoms as that. He complains of some lightheadedness and dizziness as well. No headache or syncope. Symptom severity is moderate. No alleviating factors. No exacerbating factors. PFSH Past Medical History Blood Disorders: Yes (hx of blood clot left leg) Anxiety: Yes Cancer: No Cardiovascular Problems: No Diabetes: No Deep Vein Thrombosis: Yes Endocrine: No Genitourinary: No Hepatitis: No Hiatal Hernia: No Immune Disorder: No Kidney Stones: Yes Medical other: Yes Musculoskeletal: No Neurologic: No Psychiatric: Yes Reproductive: No Respiratory: Yes Immunizations Current: Yes Thyroid Disease: No PNEUMOCCOCAL Vaccine (Year): 2 ?: Not Past Surgical History Abdominal Surgery: Yes (7 HERNIA REPAIRS SINCE 2006) Cardiac Surgery: No Ear Surgery: No Endocrine Surgery: No Eye Surgery: No Genitourinary Surgery: Yes (LITHOTRIPSY) Gynecologic Surgery: No Oral Surgery: No Pacemaker: No Thoracic Surgery: No Other Surgery: Yes (abdominal x 3 hernia and intestinal) Social History Alcohol Use: No (quit 20 years ago) Tobacco Use: No Substance Use: No Allergies-Medications (Allergen,Severity, Reaction): Coded Allergies: No Known Allergies (Verified , 12/26/16) Reported Meds & Prescriptions Reported Meds & Active Scripts Active Reported Aspirin 325 Mg Tab 325 Mg PO DAILY Tamsulosin (Tamsulosin HCl) 0.4 Mg Cap 0.4 Mg PO HS Omeprazole 20 Mg Tab 20 Mg PO DAILY Review of Systems General / Constitutional: No: Fever Eyes: No: Visual changes HENT: Positive: Lightheadedness, No: Headaches Cardiovascular: Positive: Chest Pain or Discomfort Respiratory: Positive: Shortness of Breath Gastrointestinal: No: Abdominal Pain Genitourinary: No: Dysuria Musculoskeletal: No: Pain Skin: No Rash Neurologic: No: Weakness Psychiatric: No: Depression Endocrine: No: Polydipsia Hematologic/Lymphatic: No: Easy Bruising Physical Exam Narrative GENERAL: Well-nourished, well-developed patient in no apparent distress. SKIN: Focused skin assessment reveals no rash and nodules. Skin is Warm and dry. HEAD: Atraumatic. Normocephalic. EYES: Pupils equal and round. No scleral icterus. No injection or drainage. ENT: No nasal bleeding or discharge. Mucous membranes pink and moist. NECK: Trachea midline. No JVD. CARDIOVASCULAR: Regular rate and rhythm. No murmur appreciated. RESPIRATORY: No accessory muscle use. Clear to auscultation. Breath sounds equal bilaterally. GASTROINTESTINAL: Abdomen soft, non-tender, nondistended. Hepatic and splenic margins not palpable. MUSCULOSKELETAL: No obvious deformities. No clubbing. No cyanosis. No edema. NEUROLOGICAL: Awake and alert. No obvious cranial nerve deficits. Motor grossly within normal limits. Normal speech. PSYCHIATRIC: Appropriate mood and affect; insight and judgment normal. Data Data Last Documented VS Vital Signs Date Time Temp Pulse Resp B/P (MAP) Pulse Ox O2 Delivery O2 Flow Rate FiO2 03/30/18 14:22 66 187/97 (127) 03/30/18 13:49 99.1 20 99 Orders Orders Electrocardiogram (03/30/18 ) Electrocardiogram (03/30/18 14:07) Basic Metabolic Panel (Bmp) (03/30/18 14:07) Ckmb (Isoenzyme) Profile (03/30/18 14:07) Complete Blood Count With Diff (03/30/18 14:07) D-Dimer (03/30/18 14:07) Magnesium (Mg) (03/30/18 14:07) Prothrombin Time / Inr (Pt) (03/30/18 14:07) Act Partial Throm Time (Ptt) (03/30/18 14:07) Troponin I (03/30/18 14:07) Chest, Single Ap (03/30/18 14:07) Ecg Monitoring (03/30/18 14:07) Iv Access Insert/Monitor (03/30/18 14:07) Oximetry (03/30/18 14:07) Aspirin (Aspirin) (03/30/18 14:15) Sodium Chloride 0.9% Flush (Ns Flush) (03/30/18 14:15) CKMB (03/30/18 14:15) CKMB% (03/30/18 14:15) Ct Pulmonary Angiogram (03/30/18 ) Ondansetron Odt (Zofran Odt) (03/30/18 16:45) Iohexol 350 Inj (Omnipaque 350 Inj) (03/30/18 13:21) Labs Laboratory Tests Test 03/30/18 14:15 White Blood Count 6.0 TH/MM3 Red Blood Count 5.84 MIL/MM3 Hemoglobin 11.6 GM/DL Hematocrit 37.8 % Mean Corpuscular Volume 64.7 FL Mean Corpuscular Hemoglobin 19.8 PG Mean Corpuscular Hemoglobin Concent 30.6 % Red Cell Distribution Width 19.3 % Platelet Count 276 TH/MM3 Mean Platelet Volume 8.4 FL Neutrophils (%) (Auto) 72.2 % Lymphocytes (%) (Auto) 16.4 % Monocytes (%) (Auto) 8.9 % Eosinophils (%) (Auto) 1.4 % Basophils (%) (Auto) 1.1 % Neutrophils # (Auto) 4.3 TH/MM3 Lymphocytes # (Auto) 1.0 TH/MM3 Monocytes # (Auto) 0.5 TH/MM3 Eosinophils # (Auto) 0.1 TH/MM3 Basophils # (Auto) 0.1 TH/MM3 CBC Comment DIFF FINAL Differential Comment Prothrombin Time 10.9 SEC Prothromb Time International Ratio 1.1 RATIO Activated Partial Thromboplast Time 25.2 SEC D-Dimer Quantitative (PE/DVT) 1.02 MG/L FEU Blood Urea Nitrogen 10 MG/DL Creatinine 1.01 MG/DL Random Glucose 102 MG/DL Calcium Level 9.1 MG/DL Magnesium Level 2.4 MG/DL Sodium Level 140 MEQ/L Potassium Level 4.2 MEQ/L Chloride Level 108 MEQ/L Carbon Dioxide Level 23.5 MEQ/L Anion Gap 9 MEQ/L Estimat Glomerular Filtration Rate 75 ML/MIN Total Creatine Kinase 280 U/L Creatine Kinase MB 2.5 NG/ML Troponin I LESS THAN 0.02 NG/ML MDM Medical Decision Making Medical Screen Exam Complete: Yes Emergency Medical Condition: Yes Medical Record Reviewed: Yes Differential Diagnosis ACS, angina, asthma, pleural effusion Narrative Course I have reviewed the patient's electronic medical record. Patient has a month of vague symptoms. I have ordered a workup to evaluate and try to rule out emergency. IV placed and labs sent I reviewed his EKG which shows sinus rhythm but no ST elevation or ectopy Reviewed his chest x-ray which is normal Extended cardiac monitoring reveals sinus rhythm without ectopy Lab studies are normal including metabolic studies and CBC and cardiac enzymes Patient's chest pain described in a variety of ways but did have some pleuritic features at times. I did a CT pulmonary angiogram which is ruled out PE He has never had cardiac evaluation or stress testing He will be a 23 hour observation in the chest pain center in order to rule out cardiac cause of his symptoms Diagnosis Primary Impression: Chest pain Qualified Codes: R07.9 - Chest pain, unspecified Admitting Information Admitting Physician Requests: Observation Alan Escobar MD Mar 30, 2018 14:18
[2018-03-30] MEDS ORDERED: TAMS0.4C4 PO (14:26)
[2018-03-30] MEDS ORDERED: ASPI-183 PO (14:26)
[2018-03-30] MEDS ORDERED: OMEP20TA93 PO (14:26)
--- NOTE | 2018-03-30 14:34 | RADRPT ---
EXAM DATE: 03/30/2018 2:27 PM EDT AGE/SEX: 62 years / Male INDICATIONS: Chest Pain. Patient complains of dizziness, high blood pressure, nausea and being light headed. Patient states he did have back and chest pain before. CLINICAL DATA: This is the patient's initial encounter. Patient reports that signs and symptoms have been present for 1 day and indicates a pain score of 0/10. MEDICAL/SURGICAL HISTORY: Deep venous thrombosis. Renal calculi. Umbilical hernia repair. COMPARISON: No prior exams available for comparison. FINDINGS: A single AP view of the chest demonstrates the lungs to be symmetrically aerated without evidence of mass, infiltrate or effusion. The cardiomediastinal contours are unremarkable. Osseous structures a re intact. CONCLUSION: Negative for acute process Electronically signed by: Dionicio Ibarra MD 03/30/2018 2:33 PM EDT
[2018-03-30 14:37] LABS: AUTOMATED NEUTROPHIL # 4.3 TH/MM3 (1.8-7.7); BASOPHIL # 0.1 TH/MM3 (0-0.2); BASOPHIL % 1.1 % (0.0-2.0); EOSINOPHIL # 0.1 TH/MM3 (0-0.4); EOSINOPHIL % 1.4 % (0.0-4.0); HEMATOCRIT 37.8 % (39.0-51.0); HEMOGLOBIN 11.6 GM/DL (13.0-17.0); LYMPH % 16.4 % (9.0-44.0); MEAN CELL VOLUME 64.7 FL (80.0-100.0); MEAN CORPUSCULAR HEMOGLOBIN 19.8 PG (27.0-34.0); MEAN CORPUSCULAR HGB CONC 30.6 % (32.0-36.0); MEAN PLATELET VOLUME 8.4 FL (7.0-11.0); MONO % 8.9 % (0.0-8.0); MONOCYTE # 0.5 TH/MM3 (0-0.9); NEUT % 72.2 % (16.0-70.0); PLATELET COUNT 276 TH/MM3 (150-450); RED BLOOD COUNT 5.84 MIL/MM3 (4.50-5.90); RED CELL DISTRIBUTION WIDTH 19.3 % (11.6-17.2)
[2018-03-30 14:58] LABS: INTERNATIONAL NORMALIZED RATIO 1.1 RATIO; PROTHROMBIN TIME - PATIENT 10.9 SEC (9.8-11.6)
[2018-03-30 14:59] LABS: D-DIMER 1.02 MG/L FEU (0.00-0.50)
[2018-03-30 15:09] LABS: BICARBONATE 23.5 MEQ/L (21.0-32.0); BLOOD UREA NITROGEN 10 MG/DL (7-18); CALCIUM 9.1 MG/DL (8.5-10.1); CHLORIDE 108 MEQ/L (98-107); CREATININE 1.01 MG/DL (0.60-1.30); GLOMERULAR FILTRATION RATE 75 ML/MIN (>89); GLUCOSE,RANDOM 102 MG/DL (74-106); MAGNESIUM 2.4 MG/DL (1.5-2.5); SODIUM (NA) 140 MEQ/L (136-145)
[2018-03-30 15:12] LABS: TROPONIN I LESS THAN 0.02 NG/ML (0.02-0.05)
[2018-03-30] MEDS ORDERED: ONDANSETRON ODT 4 MG TAB PO ONE (16:45)
--- NOTE | 2018-03-30 16:59 | RADRPT ---
EXAM DATE: 03/30/2018 4:53 PM EDT AGE/SEX: 62 years / Male INDICATIONS: Patient complains of dizziness, chest pain radiating to back. CLINICAL DATA: This is the patient's initial encounter. Patient reports that signs and symptoms have been present for 1 day and indicates a pain score of 2/10. MEDICAL/SURGICAL HISTORY: Deep venous thrombosis. . hernia surgery RADIATION DOSE: 23.20 CTDI (mGy) COMPARISON: No prior exams available for comparison. TECHNIQUE: Volumetric scanning was performed using a multi-row detector CT scanner during bolus infu kvng of 73 ml Omnipaque 350 (iohexol) nonionic water-soluble contrast as a single exam dose. The radha a was post processed with a variety of visualization algorithms including full volume maximum intensi ty projection and sliding thin slab reformation. Using automated exposure control and adjustment of the mA and/or kV according to patient size, radiation dose was kept as low as reasonably achievable t o obtain optimal diagnostic quality images. FINDINGS: Pulmonary Arteries: No filling defects are seen in the pulmonary arteries out to the subsegmental ve ssels. The left and right pulmonary arteries are normal in diameter. Lung: No infiltrates seen. Effusion: None. Mediastinum: No evidence of mediastinal or hilar adenopathy. Other: The axilla is unremarkable. CONCLUSION: 1. Negative for central pulmonary emboli. Electronically signed by: Dionicio Ibarra MD 03/30/2018 4:57 PM EDT
--- NOTE | 2018-03-30 19:56 | PD ---
Data Data Last Documented VS Vital Signs Date Time Temp Pulse Resp B/P (MAP) Pulse Ox O2 Delivery O2 Flow Rate FiO2 03/30/18 14:22 66 187/97 (127) 03/30/18 13:49 99.1 20 99 Orders Orders Electrocardiogram (03/30/18 ) Basic Metabolic Panel (Bmp) (03/30/18 14:07) Ckmb (Isoenzyme) Profile (03/30/18 14:07) Complete Blood Count With Diff (03/30/18 14:07) D-Dimer (03/30/18 14:07) Magnesium (Mg) (03/30/18 14:07) Prothrombin Time / Inr (Pt) (03/30/18 14:07) Act Partial Throm Time (Ptt) (03/30/18 14:07) Troponin I (03/30/18 14:07) Chest, Single Ap (03/30/18 14:07) Ecg Monitoring (03/30/18 14:07) Iv Access Insert/Monitor (03/30/18 14:07) Oximetry (03/30/18 14:07) Aspirin (Aspirin) (03/30/18 14:15) Sodium Chloride 0.9% Flush (Ns Flush) (03/30/18 14:15) CKMB (03/30/18 14:15) CKMB% (03/30/18 14:15) Ct Pulmonary Angiogram (03/30/18 ) Ondansetron Odt (Zofran Odt) (03/30/18 16:45) Iohexol 350 Inj (Omnipaque 350 Inj) (03/30/18 13:21) Admit Order (Ed Use Only) (03/30/18 18:12) Labs Laboratory Tests Test 03/30/18 14:15 White Blood Count 6.0 TH/MM3 Red Blood Count 5.84 MIL/MM3 Hemoglobin 11.6 GM/DL Hematocrit 37.8 % Mean Corpuscular Volume 64.7 FL Mean Corpuscular Hemoglobin 19.8 PG Mean Corpuscular Hemoglobin Concent 30.6 % Red Cell Distribution Width 19.3 % Platelet Count 276 TH/MM3 Mean Platelet Volume 8.4 FL Neutrophils (%) (Auto) 72.2 % Lymphocytes (%) (Auto) 16.4 % Monocytes (%) (Auto) 8.9 % Eosinophils (%) (Auto) 1.4 % Basophils (%) (Auto) 1.1 % Neutrophils # (Auto) 4.3 TH/MM3 Lymphocytes # (Auto) 1.0 TH/MM3 Monocytes # (Auto) 0.5 TH/MM3 Eosinophils # (Auto) 0.1 TH/MM3 Basophils # (Auto) 0.1 TH/MM3 CBC Comment DIFF FINAL Differential Comment Prothrombin Time 10.9 SEC Prothromb Time International Ratio 1.1 RATIO Activated Partial Thromboplast Time 25.2 SEC D-Dimer Quantitative (PE/DVT) 1.02 MG/L FEU Blood Urea Nitrogen 10 MG/DL Creatinine 1.01 MG/DL Random Glucose 102 MG/DL Calcium Level 9.1 MG/DL Magnesium Level 2.4 MG/DL Sodium Level 140 MEQ/L Potassium Level 4.2 MEQ/L Chloride Level 108 MEQ/L Carbon Dioxide Level 23.5 MEQ/L Anion Gap 9 MEQ/L Estimat Glomerular Filtration Rate 75 ML/MIN Total Creatine Kinase 280 U/L Creatine Kinase MB 2.5 NG/ML Troponin I LESS THAN 0.02 NG/ML MDM Supervised Visit with RAMIRO: No Narrative Course This patient is still boarding in the emergency department at 8 PM, had orders for chest pain center opposite 2:00, I have placed standing order so that the patient can be moved out of the emergency department. I have not evaluated the patient peer Diagnosis Primary Impression: Chest pain Qualified Codes: R07.9 - Chest pain, unspecified Rene Clemens MD Mar 30, 2018 19:55
[2018-03-30] MEDS ORDERED: SODIUM CHLORIDE 0.9% FLUSH 10 ML FLUSH IV FLUSH PRN (20:00)
[2018-03-30 23:04] LABS: TROPONIN I LESS THAN 0.02 NG/ML (0.02-0.05)
[2018-03-30] MEDS: SODIUM CHLORIDE 0.9% FLUSH 10 ML FLUSH IV FLUSH SCH (23:28)
[2018-03-31 02:33] LABS: TROPONIN I LESS THAN 0.02 NG/ML (0.02-0.05)
[2018-03-31 03:20] VITALS: BP 142/80; PULSE 54; RESP 16; TEMP 98.5; O2SAT 96
[2018-03-31 08:00] VITALS: BP 152/77; PULSE 56; RESP 16; TEMP 98.2; O2SAT 96
[2018-03-31] MEDS ORDERED: NITROGLYCERIN 0.4 MG SL 25 TABS/BTL SL PRN (08:00)
[2018-03-31] MEDS ORDERED: ACETAMINOPHEN 500 MG CPLT PO PRN (08:00)
[2018-03-31] MEDS ORDERED: ONDANSETRON ODT 4 MG TAB PO PRN (08:00)
[2018-03-31 08:02] VITALS: PULSE 55
[2018-03-31] MEDS ORDERED: PANTOPRAZOLE SOD 20 MG DELAYED RELEASE TAB PO SCH (09:00)
[2018-03-31] MEDS ORDERED: ASPIRIN 325 MG TAB PO SCH (09:00)
[2018-03-31] MEDS ORDERED: TAMSULOSIN HCL 0.4 MG CAP PO SCH (09:00)
[2018-03-31] MEDS: SODIUM CHLORIDE 0.9% FLUSH 10 ML FLUSH IV FLUSH SCH (09:10)
--- NOTE | 2018-03-31 09:53 | HHI.HP ---
HPI Primary Care Physician [facility] Chief Complaint Chest pain, dizziness History of Present Illness 62-year-old male with history of hypertension, hyperlipidemia, BPH, renal calculi, esophageal stricture with recent dilation on 02/16/18 presents emergency room for further evaluation of multiple complaints. One month of exertional dyspnea and fatigue with any activity. 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 Recovers within a few minutes of rest. Second concern intermittent, nonexertional, sharp pain. Duration minutes. No radiation of pain. No associated symptoms. Seems to occur every other day. Third complaint right anterior chest discomfort , denies pain, difficult for him to describe discomfort. Duration seconds. No radiation. Severity moderate. No associated symptoms. No precipitating of relieving factors. Yesterday while refilling his [facility] , he experienced right anterior chest pain with associated dizziness, nausea, and diaphoresis. States "I felt like I was going to pass out." Duration 15 seconds. Experienced similar episode before leaving [facility], therefore [facility] sent him via EMS to ER for further evaluation. No further episodes of dizziness or chest pain since arrival to ER. Review of Systems General: Fatigue with exertion, recovers within few minutes, otherwise been in his general state of health. No weakness, fever, chills, recent travel, or recent illness. Endorses history of hyperlipidemia and hypertension reporting he took himself off medications "awhile ago" because he didn't like the way the medications made him feel. HEENT: No JOINER, no vision changes, no nasal congestion or drainage. History of esophageal stricture with recent dilatation 02/16/18, multiple dilations in the past. CV: As stated above. No further chest discomfort or dizziness since arrival to ER. No palpitations. RESP: No SOB, cough, wheeze, or history of asthma GI: No nausea, vomiting, bowel changes, diarrhea, constipation, pain, distention , melena, or blood in the stool. No unintentional weight gain or weight loss. History of multiple umbilical surgeries. : No dysuria, urgency, frequency, or hematuria. History of kidney stones with past lithotripsy. EXT: No lower leg edema, no paraesthesias MS: No discomfort, injury, trauma, or change in ROM NEURO: No change in memory, difficulty with balance, LOC, or motor/sensory deficits PSYCH: No anxiety, depression, or suicidal ideation SKIN: No rashes, no concerning lesions Past Family Social History Allergies: Coded Allergies: No Known Allergies (Verified , 12/26/16) Past Medical History Renal calculi, DVT left leg, esophageal stricture with dilatation, hypertension , GERD, hyperlipidemia, BPH Past Surgical History x8 umbilical hernia surgeries Reported Medications Reported Meds & Active Scripts Active Reported Aspirin 325 Mg Tab 325 Mg PO DAILY Tamsulosin (Tamsulosin HCl) 0.4 Mg Cap 0.4 Mg PO HS Omeprazole 20 Mg Tab 20 Mg PO DAILY Active Ordered Medications Current Medications Medications (Trade) Dose Ordered Sig/Rosita Route Start Time Stop Time Status Last Admin (NS Flush) 2 ml UNSCH PRN IV FLUSH 03/30/18 20:00 (NS Flush) 2 ml BID IV FLUSH 03/30/18 21:00 03/31/18 09:10 (Tylenol) 500 mg Q4H PRN PO 03/31/18 08:00 (Nitrostat Sl) 0.4 mg Q5M PRN SL 03/31/18 08:00 (Aspirin) 325 mg DAILY PO 03/31/18 09:00 03/31/18 09:10 (Zofran Odt) 4 mg Q6H PRN PO 03/31/18 08:00 (Flomax) 0.4 mg HS PO 03/31/18 09:00 03/31/18 09:10 (Protonix) 20 mg DAILY PO 03/31/18 09:00 03/31/18 09:10 Family History Father first IA in early 40s. Sister age 45 cancer. Social History No known coronary artery disease or diabetes. Known hypertension hyperlipidemia , not currently taking medications took himself off medication. Lifelong non-smoker. Quit using alcohol over 20 years ago. 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 Past cardiac testing None Physical Exam Vital Signs Vital Signs Date Time Temp Pulse Resp B/P (MAP) Pulse Ox O2 Delivery O2 Flow Rate FiO2 03/31/18 08:00 98.2 56 16 152/77 (102) 96 03/31/18 03:20 98.5 54 16 142/80 (100) 96 03/30/18 23:20 98.9 56 16 153/75 (101) 97 03/30/18 20:51 98.7 61 18 161/84 (109) 97 03/30/18 20:22 03/30/18 19:56 97 03/30/18 19:29 60 16 139/80 (99) 97 Room Air 03/30/18 18:27 58 14 168/86 (113) 97 Room Air 03/30/18 14:22 66 187/97 (127) 03/30/18 13:49 99.1 74 20 188/91 (123) 99 Physical Exam GENERAL: Alert WN, WD, NAD, pleasant, , obese male who appears older than stated age HEAD: NC, AT CV: RRR, without murmur, rub, gallop, no JVD, S1-S2 no S3-S4. No carotid bruits. Chest wall nontender with palpation. RESP: Clear lungs throughout bilateral, no crackles, wheeze, rhonchi, symmetrical chest rise, nonlabored, able to speak in full sentences ABD: Soft, NT, ND, no masses, positive bowel tones, umbilical hernia, well healed surgical scars EXT: Pulses +2x4, no dependent edema MS: Normal tone x4 extremities, nontender, no obvious deformities, full range of motion NEURO: CN II through CN XII grossly intact, motor strength 5/5 PSYCH: A+O x3, pleasant affect, appropriate speech, mood, insight and judgment SKIN: Normal turgor, normal texture, no lesions, no rashes, brisk cap refill, even hair distribution, multiple tattoos Laboratory Laboratory Tests Test 03/30/18 14:15 03/30/18 22:11 03/31/18 01:14 White Blood Count 6.0 Red Blood Count 5.84 Hemoglobin 11.6 Hematocrit 37.8 Mean Corpuscular Volume 64.7 Mean Corpuscular Hemoglobin 19.8 Mean Corpuscular Hemoglobin Concent 30.6 Red Cell Distribution Width 19.3 Platelet Count 276 Mean Platelet Volume 8.4 Neutrophils (%) (Auto) 72.2 Lymphocytes (%) (Auto) 16.4 Monocytes (%) (Auto) 8.9 Eosinophils (%) (Auto) 1.4 Basophils (%) (Auto) 1.1 Neutrophils # (Auto) 4.3 Lymphocytes # (Auto) 1.0 Monocytes # (Auto) 0.5 Eosinophils # (Auto) 0.1 Basophils # (Auto) 0.1 CBC Comment DIFF FINAL Differential Comment Prothrombin Time 10.9 Prothromb Time International Ratio 1.1 Activated Partial Thromboplast Time 25.2 D-Dimer Quantitative (PE/DVT) 1.02 Blood Urea Nitrogen 10 Creatinine 1.01 Random Glucose 102 Calcium Level 9.1 Magnesium Level 2.4 Sodium Level 140 Potassium Level 4.2 Chloride Level 108 Carbon Dioxide Level 23.5 Anion Gap 9 Estimat Glomerular Filtration Rate 75 Total Creatine Kinase 280 217 216 Creatine Kinase MB 2.5 1.6 1.9 Troponin I LESS THAN 0.02 LESS THAN 0.02 LESS THAN 0.02 Result Diagram: 03/30/18 1415 03/30/18 1415 Imaging Last 48 hours Impressions Chest X-Ray 03/30/18 1407 Signed Impressions: CONCLUSION: Negative for acute process CT Angiography 03/30/18 0000 Signed Impressions: CONCLUSION: 1. Negative for central pulmonary emboli. Course EKG NSR, normal axis, nonspecific T wave changes Caprini VTE Risk Assessment Caprini VTE Risk Assessment: No/Low Risk (score <= 1) Caprini Risk Assessment Model Point Value = 1 Point Value = 2 Point Value = 3 Point Value = 5 Age 41-60 Minor surgery BMI > 25 kg/m2 Swollen legs Varicose veins or History of unexplained or recurrent spontaneous Oral contraceptives or hormone replacement Sepsis (< 1 month) Serious lung disease, including pneumonia (< 1 month) Abnormal pulmonary function Acute myocardial infarction Congestive heart failure (< 1 month) History of inflammatory bowel disease Medical patient at bed rest Age 61-74 Arthroscopic surgery Major open surgery (> 45 min) Laparoscopic surgery (> 45 min) Malignancy Confined to bed (> 72 hours) Immobilizing plaster cast Central venous access Age >= 75 History of VTE Family history of VTE Factor V Leiden Prothrombin [id number] Lupus anticoagulant Anticardiolipin antibodies Elevated serum homocysteine Heparin-induced thrombocytopenia Other congenital or acquired thrombophilia Stroke (< 1 month) Elective arthroplasty Hip, pelvis, or leg fracture Acute spinal cord injury (< 1 month) Prophylaxis Regimen Total Risk Factor Score Risk Level Prophylaxis Regimen 0-1 Low Early ambulation 2 Moderate Order ONE of the following: *Sequential Compression Device (SCD) *Heparin 5000 units SQ BID 3-4 Higher Order ONE of the following medications: *Heparin 5000 units SQ TID *Enoxaparin/Lovenox 40 mg SQ daily (WT < 150 kg, CrCl > 30 mL/min) *Enoxaparin/Lovenox 30 mg SQ daily (WT < 150 kg, CrCl > 10-29 mL/min) *Enoxaparin/Lovenox 30 mg SQ BID (WT < 150 kg, CrCl > 30 mL/min) AND/OR *Sequential Compression Device (SCD) 5 or more Highest Order ONE of the following medications: *Heparin 5000 units SQ TID (Preferred with Epidurals) *Enoxaparin/Lovenox 40 mg SQ daily (WT < 150 kg, CrCl > 30 mL/min) *Enoxaparin/Lovenox 30 mg SQ daily (WT < 150 kg, CrCl > 10-29 mL/min) *Enoxaparin/Lovenox 30 mg SQ BID (WT < 150 kg, CrCl > 30 mL/min) AND *Sequential Compression Device (SCD) Assessment and Plan Assessment and Plan #1 Atypical chest pain-admitted to chest pain center. ACS ruled out with 3 sets of EKGs and cardiac enzymes. Seen and evaluated by Dr. Dilan Nuñez. Proceed with Rachelle this am as patient reports he is unable to walk in treadmill due to umbilical hernia. If unremarkable, plan to discharge home with follow up with PCP. In regards to history of hypertension and hyperlipidemia, strongly encouraged to reconsider medication compliance, diet and lifestyle modification , and increase daily activity. Jade Lawrence Mar 31, 2018 09:53
--- NOTE | 2018-03-31 10:00 | PD.CARD.PN ---
Subjective Subjective Remarks Patient was resented and discussed with the nurse practitioner in the records were reviewed. The patient was then personally seen and examined. His history of fatigue with exertion is very atypical for ischemic heart disease as it is a sharp pain however he does have risk factors as defined above. I am in agreement with current documentation. Plan was defined consistent with chest pain center protocol to rule out definitively evaluate his discomfort. Objective Medications Current Medications Medications (Trade) Dose Ordered Sig/Rosita Route Start Time Stop Time Status Last Admin (NS Flush) 2 ml UNSCH PRN IV FLUSH 03/30/18 20:00 (NS Flush) 2 ml BID IV FLUSH 03/30/18 21:00 03/31/18 09:10 (Tylenol) 500 mg Q4H PRN PO 03/31/18 08:00 (Nitrostat Sl) 0.4 mg Q5M PRN SL 03/31/18 08:00 (Aspirin) 325 mg DAILY PO 03/31/18 09:00 03/31/18 09:10 (Zofran Odt) 4 mg Q6H PRN PO 03/31/18 08:00 (Flomax) 0.4 mg HS PO 03/31/18 09:00 03/31/18 09:10 (Protonix) 20 mg DAILY PO 03/31/18 09:00 03/31/18 09:10 Vital Signs / I&O Vital Signs Date Time Temp Pulse Resp B/P (MAP) Pulse Ox O2 Delivery O2 Flow Rate FiO2 03/31/18 08:00 98.2 56 16 152/77 (102) 96 03/31/18 03:20 98.5 54 16 142/80 (100) 96 03/30/18 23:20 98.9 56 16 153/75 (101) 97 03/30/18 20:51 98.7 61 18 161/84 (109) 97 03/30/18 20:22 03/30/18 19:56 97 03/30/18 19:29 60 16 139/80 (99) 97 Room Air 03/30/18 18:27 58 14 168/86 (113) 97 Room Air 03/30/18 14:22 66 187/97 (127) 03/30/18 13:49 99.1 74 20 188/91 (123) 99 Physical Exam Somewhat obese gentleman in no acute distress Abdomen is heavily scarred intact. Neck is supple with no JVD masses nodes or bruits Chest diffusely diminished breath sounds but no rales wheezes or rhonchi Cardiovascular PMI is not palpated but there are no gallops rubs or murmurs The abdomen is diffusely scarred somewhat tender but no guarding or rebound Extremities reveal no clubbing cyanosis or edema Laboratory Laboratory Tests Test 03/30/18 14:15 03/30/18 22:11 03/31/18 01:14 White Blood Count 6.0 TH/MM3 Red Blood Count 5.84 MIL/MM3 Hemoglobin 11.6 GM/DL Hematocrit 37.8 % Mean Corpuscular Volume 64.7 FL Mean Corpuscular Hemoglobin 19.8 PG Mean Corpuscular Hemoglobin Concent 30.6 % Red Cell Distribution Width 19.3 % Platelet Count 276 TH/MM3 Mean Platelet Volume 8.4 FL Neutrophils (%) (Auto) 72.2 % Lymphocytes (%) (Auto) 16.4 % Monocytes (%) (Auto) 8.9 % Eosinophils (%) (Auto) 1.4 % Basophils (%) (Auto) 1.1 % Neutrophils # (Auto) 4.3 TH/MM3 Lymphocytes # (Auto) 1.0 TH/MM3 Monocytes # (Auto) 0.5 TH/MM3 Eosinophils # (Auto) 0.1 TH/MM3 Basophils # (Auto) 0.1 TH/MM3 CBC Comment DIFF FINAL Differential Comment Prothrombin Time 10.9 SEC Prothromb Time International Ratio 1.1 RATIO Activated Partial Thromboplast Time 25.2 SEC D-Dimer Quantitative (PE/DVT) 1.02 MG/L FEU Blood Urea Nitrogen 10 MG/DL Creatinine 1.01 MG/DL Random Glucose 102 MG/DL Calcium Level 9.1 MG/DL Magnesium Level 2.4 MG/DL Sodium Level 140 MEQ/L Potassium Level 4.2 MEQ/L Chloride Level 108 MEQ/L Carbon Dioxide Level 23.5 MEQ/L Anion Gap 9 MEQ/L Estimat Glomerular Filtration Rate 75 ML/MIN Total Creatine Kinase 280 U/L 217 U/L 216 U/L Creatine Kinase MB 2.5 NG/ML 1.6 NG/ML 1.9 NG/ML Troponin I LESS THAN 0.02 NG/ML LESS THAN 0.02 NG/ML LESS THAN 0.02 NG/ML Imaging Last 24 hours Impressions Chest X-Ray 03/30/18 1407 Signed Impressions: CONCLUSION: Negative for acute process Assessment and Plan Assessment and Plan Patient has ruled out using chest pain protocol ACS and will not be evaluated with nuclear stress test for underlying ischemia. If this is negative he will be discharged to further follow-up on an outpatient basis. 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 Code Status Full code Discussed Condition With Patient's care was discussed with the patient and he is in agreement Dilan Nuñez MD Mar 31, 2018 10:00
[2018-03-31 11:05] VITALS: PULSE 56
[2018-03-31 12:00] VITALS: BP 142/70; PULSE 57; RESP 17; TEMP 98.4; O2SAT 94
[2018-03-31] MEDS ORDERED: REGADENOSON INJ 0.4 MG/5 ML SYR ONE (12:14)
--- NOTE | 2018-03-31 12:53 | EKG ---
Date Performed: 03/30/2018 Time Performed: 20:58:23 PTAGE: 62 years EKG: SINUS BRADYCARDIA NONSPECIFIC T-WAVE ABNORMALITY BORDERLINE ECG PREVIOUS TRACING : 03/30/2018 13.13 Since the previous tracing, no significant change noted DOCTOR: Dilan Nuñez Interpretating Date/Time 03/31/2018 12:50:44
--- NOTE | 2018-03-31 12:53 | EKG ---
Date Performed: 03/30/2018 Time Performed: 13:13:37 PTAGE: 62 years EKG: Sinus rhythm NONSPECIFIC T-WAVE ABNORMALITY BORDERLINE ECG PREVIOUS TRACING : 01/08/2012 13.54 Since the previous tracing, no significant change noted DOCTOR: Dilan Nuñez Interpretating Date/Time 03/31/2018 12:50:54
--- NOTE | 2018-03-31 12:53 | EKG ---
Date Performed: 03/30/2018 Time Performed: 23:17:31 PTAGE: 62 years EKG: SINUS BRADYCARDIA NONSPECIFIC T-WAVE ABNORMALITY BORDERLINE ECG PREVIOUS TRACING : 03/30/2018 20.58 Since the previous tracing, no significant change noted DOCTOR: Dilan Nuñez Interpretating Date/Time 03/31/2018 12:50:35
--- NOTE | 2018-03-31 15:54 | RADRPT ---
EXAM DATE: 03/31/2018 2:20 PM EDT AGE/SEX: 62 years / Male INDICATIONS:Angina. . Mid chest pain with shortness of breath for 1 month. CLINICAL DATA: This is the patient's initial encounter. Patient reports that signs and symptoms have been present for 1 month and indicates a pain score of 5/10. MEDICAL/SURGICAL HISTORY: Hypertension. Inguinal hernia repair. COMPARISON: No prior exams available for comparison. No external comparison. DOSE: 11.0 mCi Tc 99m Myoview at rest 34.8 mCi [id number] at stress 0.4 mg Lexiscan STRESS SYMPTOMS: Dyspnea. EJECTION FRACTION: 62 % TECHNIQUE: The patient underwent pharmacologic stress with infusion of prescribed dose. Continuous ECG tracing was monitored during stress. Gated SPECT imaging was performed after stress and conventi onal SPECT imaging was performed at rest. The examination was performed on a SPECT/CT scanner, both attenuation and non-corrected datasets were reviewed. FINDINGS: Distribution: The maximum perfused segment at stress is in the anterolateral wall. Perfusion Study: The pattern of perfusion at stress is within normal limits. Gated Study: There are intact wall motion and wall thickening without hypokinetic or dyskinetic segm ents. The ejection fraction is calculated at 62%. RISK CATEGORY: Low (<1% Annual Motality Rate) CONCLUSION: 1. No significant reversibility to suggest ischemia. 2. Normal wall motion with ejection fraction 62%. Electronically signed by: Onesimo Ortiz MD 03/31/2018 3:53 PM EDT
[2018-03-31 16:00] VITALS: BP 134/65; PULSE 65; RESP 16; TEMP 97.7; O2SAT 96
--- NOTE | 2018-03-31 16:05 | HHI.DCPOC ---
Discharge Care Plan Diagnosis: (1) Atypical chest pain Goals to Promote Your Health * To prevent worsening of your condition and complications * To maintain your health at the optimal level Directions to Meet Your Goals Take your medications as prescribed Follow your dietary instruction Follow activity as directed Keep your appointments as scheduled Take your immunizations and boosters as scheduled If your symptoms worsen call your PCP, if no PCP go to Urgent Care Center or Emergency Room Smoking is Dangerous to Your Health. Avoid second hand smoke Call the 24-hour hour crisis hotline for domestic abuse at Jade Lawrence Mar 31, 2018 16:05
--- NOTE | 2018-04-02 15:41 | TR ---
Date Performed: 03/31/2018 Time Performed: 12:24:33 DOCTOR: Cal Mas DRUG LIST: CLINICAL HISTORY: ANGINA REASON FOR TEST: Angina REASON FOR ENDING: OBSERVATION: CONCLUSION: COMMENTS: Lexiscan stress test was performed under standard four minute protocol. Radionuclide was injected one minute prior to ending the test. No electrocardiographic abormalities were present t o suggest ischemia. Nuclear imaging and interpretation are pending.
== END 2018-03-31 17:13 | disposition home or self-care (01) ==
LOC: NEPE 13:20 → NEDA 18:15 → NEPFCDU 20:21
PROVIDERS: ADMIT Internal Medicine Interventional Cardiology; ATTEND Internal Medicine Interventional Cardiology
DX: R07.89 Other chest pain (principal); I10 Essential (primary) hypertension; R94.31 Abnormal electrocardiogram [ECG] [EKG]; E78.5 Hyperlipidemia, unspecified; K21.9 Gastro-esophageal reflux disease without esophagitis; K42.9 Umbilical hernia without obstruction or gangrene; N40.0 Benign prostatic hyperplasia without lower urinary tract symptoms; Z87.442 Personal history of urinary calculi
CPT/HCPCS: 71045; 71275; 78452; 80048; 82550; 82552; 83735; 84484; 85025; 85379; 85610; 85730; 93005; 93017; 99285; A9502; G0378; J2785; Q9967